=== PATIENT | female | born 1980 ===

== ENCOUNTER 2017-04-23 11:46 | Observation (INO) | payer OTHER ==
[2017-04-23 11:47] VITALS: BMI 30.9
[2017-04-23 13:07] VITALS: O2SAT 97
[2017-04-23] MEDS ORDERED: MethylPREDNISolone 40 mg Vial IVP STA (13:14)
--- NOTE | 2017-04-23 13:15 | C.PDOC ---
History Of Present Illness 37-year-old female, PMHx includes Asthma and Migraines, presents to the emergency department with complaints of shortness of breath, headache and diffuse body aches for the past three days. Patient states she has an asthma pump at home but "I try not to use it often." States she hasn't used it since onset of symptoms because she could not find it. Denies nausea/vomiting, fevers , chills, chest pain or any other associated symptoms. Of note, patient has a Hx of multiple visits to ED for multiple somatic complaints. Time Seen by Provider: 04/23/17 12:39 Chief Complaint (Nursing): Shortness Of Breath Past Medical History Reviewed: Historical Data, Nursing Documentation, Vital Signs Vital Signs: Last Vital Signs Temp 97.7 F 04/23/17 14:27 Pulse 90 04/23/17 14:27 Resp 20 04/23/17 14:27 BP 104/66 04/23/17 14:27 Pulse Ox 97 04/23/17 15:17 - Medical History PMH: Asthma, Migraine Family History: States: No Known Family Hx - Social History Hx Tobacco Use: Yes (quit smoking and started again 2 months ago) Hx Alcohol Use: Yes Hx Substance Use: No - Immunization History Hx Tetanus Toxoid Vaccination: No Hx Influenza Vaccination: No Hx Pneumococcal Vaccination: No Review Of Systems Except As Marked, All Systems Reviewed And Found Negative. Constitutional: Negative for: Fever Cardiovascular: Negative for: Chest Pain Respiratory: Positive for: Shortness of Breath, Wheezing Gastrointestinal: Positive for: Abdominal Pain (due to fibroids, chronic). Negative for: Nausea, Vomiting Neurological: Negative for: Weakness, Numbness Physical Exam - Physical Exam Appears: Non-toxic, No Acute Distress, Other (NARD. SPEAKING IN FULL SENTENCES) Skin: Warm, Dry, No Rash Head: Atraumatic, Normacephalic Eye(s): bilateral: Normal Inspection, PERRL, EOMI Nose: Normal Oral Mucosa: Moist Lips: Normal Appearing Neck: Normal ROM Cardiovascular: Rhythm Regular, No Murmur Respiratory: Decreased Breath Sounds (B/L), Wheezing (B/L expiratory.), Other ( MILD TACHYPNEA) Extremity: Normal ROM Neurological/Psych: Oriented x3 ED Course And Treatment - Laboratory Results Result Diagrams: 04/23/17 13:41 06/03/17 13:41 O2 Sat by Pulse Oximetry: 97 Progress - Data Reviewed Data Reviewed: Lab, Diagnostic imaging, EKG, Old records ED OBSERVATION Discharge: Yes Date of observation admission: 04/23/17 Time of observation admission: 12:15 - Observation admission statement Patient is being placed in observation because:: ASTHMA, CP, - Goals of Observation Goals of observation are:: SX IMPROVE - Progress Note Progress Note: 04/23/17 15:16 FEELS BETTER, CO "JITTERY" S/P NEB X 3. NOW W "TICKLE IN BACK OF THROAT" CAUSING COUGH. CTA B/L NO W/R/R IMPROVED COMPARED TO PRIOR. 04/23/17 16:23 FEELS BETTER. NARD. Disposition Counseled Patient/Family Regarding: Studies Performed, Diagnosis, Need For Followup, Rx Given - Disposition Disposition: HOME/ ROUTINE Disposition Time: 16:23 Condition: IMPROVED - Clinical Impression Clinical Impression: Chest wall pain, Asthma exacerbation - Scribe Statement The provider has reviewed the documentation as recorded by the Olive Brennan All medical record entries made by the Olive were at my direction and personally dictated by me. I have reviewed the chart and agree that the record accurately reflects my personal performance of the history, physical exam, medical decision making, and the department course for this patient. I have also personally directed, reviewed, and agree with the discharge instructions and disposition.
[2017-04-23] MEDS ORDERED: Albuterol-Ipratrop 3 mg / 0.5 (3 ml) UD ONE ×3 (13:24→13:54)
[2017-04-23] MEDS ORDERED: MethylPREDNISolone 40 mg Vial ONE (13:24)
[2017-04-23] MEDS: Albuterol-Ipratrop 3 mg / 0.5 (3 ml) UD IH SCH ×2 (13:30→13:51)
[2017-04-23 13:46] LABS: BASO % 0.6 % (0.0-2.0); EOS # 0.1 K/uL (0.0-0.7); EOS % 1.6 % (0.0-4.0); HEMATOCRIT 35.8 % (34.0-47.0); LYMPH # 1.1 K/uL (1.0-4.3); LYMPH % 25.5 % (20.0-40.0); MEAN CELL VOLUME 80.1 fL (81.0-99.0); MEAN CORPUSCULAR HEMOGLOBIN 25.1 pg (27.0-31.0); MEAN CORPUSCULAR HGB CONC 31.4 g/dL (33.0-37.0); MEAN PLATELET VOLUME 10.4 fL (7.2-11.7); MONO # 0.6 K/uL (0.0-0.8); MONO % 14.1 % (0.0-10.0)
[2017-04-23 13:52] LABS: WHITE BLOOD COUNT 4.2 K/uL (4.8-10.8)
[2017-04-23 13:56] LABS: CHLORIDE 101 mmol/L (98-107); SODIUM 136 mmol/L (132-148)
[2017-04-23 13:59] LABS: BLOOD UREA NITROGEN 15 mg/dL (7-17); CARBON DIOXIDE 26 mmol/L (22-30); GFR AFRICAN-AMERICAN > 60; GLUCOSE,RANDOM 82 mg/dL (65-105); POTASSIUM 4.5 mmol/L (3.6-5.2)
[2017-04-23 14:00] LABS: CALCIUM 8.4 mg/dl (8.6-10.4)
[2017-04-23 14:29] VITALS: RESP 20
--- NOTE | 2017-04-23 16:24 | RAD ---
HISTORY: SOB COMPARISON: Comparison chest 07/12/2016 TECHNIQUE: PA and lateral views of the chest performed FINDINGS: LUNGS: No active pulmonary disease. PLEURA: No significant pleural effusion identified. No pneumothorax apparent. CARDIOVASCULAR: Normal. OSSEOUS STRUCTURES: Mild multilevel degenerative spondylosis of the thoracic spine VISUALIZED UPPER ABDOMEN: Normal. OTHER FINDINGS: None. IMPRESSION: No active disease.
[2017-04-23 16:46] VITALS: BP 117/83; PULSE 97; TEMP 98.8
--- NOTE | 2017-04-29 16:51 | CARD ---
APPROVED REPORT EKG Measurement Heart [id number] <Conclusion> Normal sinus rhythm with sinus arrhythmia Normal ECG
== END 2017-04-23 16:24 | disposition home or self-care (01) ==
LOC: C.ER 11:46 → C.9OBSV 12:15
PROVIDERS: ADMIT Emergency Medicine; ATTEND Emergency Medicine
DX: J45.901 Unspecified asthma with (acute) exacerbation (principal); Z87.891 Personal history of nicotine dependence
CPT/HCPCS: 71020; 80048; 84484; 85025; 96374; 96375; 99285; G0378; J1885; J2920

== ENCOUNTER 2017-05-26 12:52 | Emergency (ER) | payer OTHER ==
[2017-05-26 12:53] VITALS: BMI 30.9
[2017-05-26 12:59] VITALS: TEMP 97.9
[2017-05-26] MEDS ORDERED: Naproxen 550 mg Tab PO STA (14:06)
--- NOTE | 2017-05-26 14:21 | C.PDOC ---
History Of Present Illness 37 y/o female presents to the ED with complaints of neck and diffuse back pain. Pt reports she tripped and fell at home 1 week ago and today landing on her back. Pt also reports right shoulder pain and mild headache. Denies hitting head , LOC, vomiting, urinary or bowel incontinence, numbness or weakness to extremities or any other complaints. Time Seen by Provider: 05/26/17 13:14 Chief Complaint (Nursing): Upper Extremity Problem/Injury History Per: Patient History/Exam Limitations: no limitations Onset/Duration Of Symptoms: Hrs Current Symptoms Are (Timing): Still Present Quality: "Pain" Severity: Moderate Recent travel outside of the [place]: No Past Medical History Reviewed: Historical Data, Nursing Documentation, Vital Signs Vital Signs: Last Vital Signs Temp 97.9 F 05/26/17 12:55 Pulse 67 05/26/17 12:55 Resp 20 05/26/17 12:55 BP 115/76 05/26/17 12:55 Pulse Ox 100 05/26/17 14:24 - Medical History PMH: Asthma, Migraine Family History: States: Unknown Family Hx - Social History Hx Tobacco Use: Yes (quit smoking and started again 2 months ago) Hx Alcohol Use: Yes Hx Substance Use: No - Immunization History Hx Tetanus Toxoid Vaccination: No Hx Influenza Vaccination: No Hx Pneumococcal Vaccination: No Review Of Systems Except As Marked, All Systems Reviewed And Found Negative. Cardiovascular: Negative for: Chest Pain Respiratory: Negative for: Shortness of Breath Gastrointestinal: Negative for: Vomiting Genitourinary: Negative for: Incontinence Musculoskeletal: Positive for: Neck Pain, Back Pain (chronic back pain) Neurological: Positive for: Headache. Negative for: Weakness, Numbness Physical Exam - Physical Exam Appears: Non-toxic, In Acute Distress (mild pain) Skin: Warm, Dry, No Rash Head: Atraumatic, Normacephalic Neck: Normal ROM, No Midline Cervical Tenderness, Supple Chest: Symmetrical, No Tenderness, No Ecchymosis Cardiovascular: Rhythm Regular, No Murmur Respiratory: Normal Breath Sounds, No Rales, No Rhonchi, No Wheezing Gastrointestinal/Abdominal: Normal Exam, Soft, No Tenderness Back: Vertebral Tenderness (lumbar), Paraspinal Tenderness (diffuse) Extremity: Normal ROM, Tenderness (mild right shoulder tenderness), Capillary Refill (<2 seconds), No Deformity, No Swelling Neurological/Psych: Oriented x3, Normal Speech, Normal Cognition, Normal Motor, Normal Sensation Gait: Steady ED Course And Treatment O2 Sat by Pulse Oximetry: 100 (room air) Pulse Ox Interpretation: Normal Progress Note: Plan: Naproxen, flexeril, XR lumbar and cervical spine, XR thoracic spine Medical Decision Making Medical Decision Makin37 y/o female presents to the ED after a slip and call and now c/o with complaints of neck and diffuse back pain. Uhcg (-). XR c spine : straightening of normal cervical lordosis, (+) mild spondylosis of C5-C6, (-) fracture, as read by PA. XR T spine : (+) mild spondylosis of the entire T spine, (-) fracture, as read by PA. XR L spine : (-) fracture, as read by PA. XR results d/w the pt in great detail. Pt given Rx for naprosyn and flexeril, was advised to f/u with referral physician in 1-2 days without fail for re- evaluation, instructed to return to the ER at any time for any new or worsening symptoms. Pt verbalize understanding of instructions, given the opportunity to ask any questions. Disposition Counseled Patient/Family Regarding: Diagnosis, Need For Followup, Rx Given - Disposition Referrals: Roberto Faustin Jr., MD [Medical Doctor] - Disposition: HOME/ ROUTINE Disposition Time: 16:00 Condition: STABLE Prescriptions: Cyclobenzaprine [Cyclobenzaprine HCl] 10 mg PO TID #15 tab Naproxen 500 mg PO BID #30 tab Forms: Work Excuse Print Language: GREEK - Clinical Impression Clinical Impression: Back contusion - PA / HEALTH CARE MARKETING SPECIALIST / Resident Statement MD/ has reviewed & agrees with the documentation as recorded. - Scribe Statement The provider has reviewed the documentation as recorded by the Olive Maxwell All medical record entries made by the Olive were at my direction and personally dictated by me. I have reviewed the chart and agree that the record accurately reflects my personal performance of the history, physical exam, medical decision making, and the department course for this patient. I have also personally directed, reviewed, and agree with the discharge instructions and disposition.
[2017-05-26] MEDS ORDERED: Naproxen 550 mg Tab PO ONE (14:26)
--- NOTE | 2017-05-26 16:17 | RAD ---
HISTORY: pain COMPARISON: No prior. FINDINGS: BONES: Alignment maintained. No fracture. Mild diffuse thoracic spondylosis. No suspect compression fracture DISC SPACES: Normal. SOFT TISSUES: Normal. OTHER FINDINGS: None. IMPRESSION: Diffuse thoracic mild thoracic spondylosis
--- NOTE | 2017-05-26 16:19 | RAD ---
PROCEDURE: Cervical Spine Radiographs. HISTORY: Pain. COMPARISON: None. FINDINGS: BONES: Straightening of the normal cervical lordosis. . No fracture. Dens Intact. Minimal anterior wedging anterior spondylosis and mild anterior intervertebral disc calcification and/or anterior longitudinal ligamentous calcification - all finding suggested C5-6 and C6-7 DISC SPACES: Normal. SOFT TISSUES: Normal. No prevertebral soft tissue swelling. OTHER FINDINGS: None. IMPRESSION: Straightening of the normal cervical lordosis. C5 and C6 mild spondylosis with additional findings regional to this level as well
--- NOTE | 2017-05-26 16:26 | RAD ---
PROCEDURE: Radiographs of the Lumbar Spine. HISTORY: pain COMPARISON: No prior. FINDINGS: BONES: Normal alignment. No listhesis. No fracture. Transitional elements are suggested thoraco lumbar and lumbosacral level. Purposes of this report, T12 will be considered with rudimentary left rib. L5 is sacralized. Anterior superior L3 endplate ridging and lesser ridging at L2 is suggested. No compression fractures DISC SPACES: Unremarkable. OTHER FINDINGS: None. IMPRESSION: Transitional elements-developmental variants. No compression fracture. Mild lumbar spondylosis as above
[2017-05-26 16:43] VITALS: BP 129/85; PULSE 85; RESP 16; O2SAT 98
== END 2017-05-26 16:42 | disposition home or self-care (01) ==
LOC: C.ER 12:52
DX: S30.0XXA Contusion of lower back and pelvis, initial encounter (principal); W01.0XXA Fall on same level from slipping, tripping and stumbling without subsequent striking against object, initial encounter; Y92.009 Unspecified place in unspecified non-institutional (private) residence as the place of occurrence of the external cause

== ENCOUNTER 2017-06-28 22:39 | Emergency (ER) | payer OTHER ==
[2017-06-28 22:39] VITALS: BMI 30.9
[2017-06-28 23:22] VITALS: BP 137/77; PULSE 94; RESP 16; TEMP 98.4; O2SAT 99
[2017-06-28] MEDS ORDERED: Naproxen 550 mg Tab PO STA (23:56)
--- NOTE | 2017-06-28 23:59 | C.PDOC ---
History Of Present Illness 37 year old female who presents to the ER with a complaint of a painful mass behind her left ear for the past week that has been causing a headache. Patient reports she has a Hx of chronic back/neck pain due to her arthritis. She denies fever, chills, nausea, vomiting, URI, rash, or sore throat. Chief Complaint (Nursing): Abnormal Skin Integrity History Per: Patient History/Exam Limitations: no limitations Onset/Duration Of Symptoms: Days Current Symptoms Are (Timing): Still Present Quality: "Pain" Associated Symptoms: denies: Photophobia, Blurred Vision, Nausea, Vomiting, Extremity Weakness Recent travel outside of the [place]: No Past Medical History Reviewed: Historical Data, Nursing Documentation, Vital Signs Vital Signs: Last Vital Signs Temp 98.4 F 06/28/17 23:16 Pulse 94 H 06/28/17 23:16 Resp 16 06/28/17 23:16 BP 137/77 06/28/17 23:16 Pulse Ox 99 06/29/17 01:47 - Medical History PMH: Arthritis, Asthma, Migraine Surgical History: No Surg Hx Family History: States: Unknown Family Hx - Social History Hx Tobacco Use: Yes (quit smoking and started again 2 months ago) Hx Alcohol Use: Yes Hx Substance Use: No - Immunization History Hx Tetanus Toxoid Vaccination: No Hx Influenza Vaccination: No Hx Pneumococcal Vaccination: No Review Of Systems Constitutional: Negative for: Fever, Chills ENT: Negative for: Throat Pain, Throat Swelling Respiratory: Negative for: Cough, Wheezing Gastrointestinal: Negative for: Nausea, Vomiting Skin: Positive for: Other (Mass behind left ear) Physical Exam - Physical Exam Appears: Well, Non-toxic, No Acute Distress Skin: Normal Color, Warm, Dry Head: Atraumatic, Normacephalic Eye(s): bilateral: Normal Inspection, PERRL, EOMI Ear(s): Bilateral: Normal Nose: Normal Oral Mucosa: Moist Throat: Normal, No Erythema, No Exudate Neck: Normal, Normal ROM, No Midline Cervical Tenderness, Supple Lymphatic: Adenopathy (Tender, mobile behind left ear) Chest: Symmetrical, No Tenderness Cardiovascular: Rhythm Regular, No Murmur Respiratory: Normal Breath Sounds, No Rales, No Rhonchi, No Wheezing Back: Normal Inspection, No Vertebral Tenderness Extremity: Normal ROM, No Tenderness, No Swelling Pulses: Left Radial: Normal, Right Radial: Normal Neurological/Psych: Oriented x3, Normal Speech, Normal Cognition, Normal Cranial Nerves, Normal Motor, Normal Sensation ED Course And Treatment O2 Sat by Pulse Oximetry: 99 (Room air) Pulse Ox Interpretation: Normal Medical Decision Making Medical Decision Makin37 year old female who presents to the ER with a complaint of a painful mass behind her left ear for the past week that has been causing a headache. Plan: * Anaprox Pt notified of likely diagnosis, advised to take medication as prescribed and to monitor her symptoms. Otherwise, advised to f/u with referral provided in 2 days for re-evaluation. Return to the ER at any time for any new or worsening symptoms. Disposition Counseled Patient/Family Regarding: Diagnosis, Need For Followup, Rx Given - Disposition Referrals: Libia Turcios MD [Staff Provider] - [facility] [Outside] Disposition: HOME/ ROUTINE Disposition Time: 23:57 Condition: STABLE Additional Instructions: Follow up with your pmd in 2 days for re-evaluation. Take medication as prescribed. Return to the ER at any time for any new or worsening symptoms. Prescriptions: Naproxen 500 mg PO BID #30 tab Instructions: Lymphadenopathy (ED) Forms: [employer] (Polish), Work Excuse Print Language: GERMAN - Clinical Impression Clinical Impression: Lymphadenopathy - PA / WINDOWS SOFTWARE ENGINEER / Resident Statement MD/DO has reviewed & agrees with the documentation as recorded. - Scribe Statement The provider has reviewed the documentation as recorded by the Scribe Kaushik Strauss All medical record entries made by the Scribe were at my direction and personally dictated by me. I have reviewed the chart and agree that the record accurately reflects my personal performance of the history, physical exam, medical decision making, and the department course for this patient. I have also personally directed, reviewed, and agree with the discharge instructions and disposition.
[2017-06-29] MEDS ORDERED: Naproxen 550 mg Tab PO ONE
== END 2017-06-29 00:05 | disposition home or self-care (01) ==
LOC: C.ER 22:39
DX: R59.1 Generalized enlarged lymph nodes (principal)

== ENCOUNTER 2017-07-26 23:07 | Emergency (ER) | payer OTHER ==
[2017-07-26 23:07] VITALS: BMI 30.9
[2017-07-27] MEDS ORDERED: Oxycodone/Acetaminophen 5/325 mg Tab PO STA (00:08)
[2017-07-27] MEDS ORDERED: Amoxicillin-Clav 875-125 mg Tab PO STA (00:08)
[2017-07-27] MEDS ORDERED: Amoxicillin-Clav 875-125 mg Tab PO ONE (00:25)
[2017-07-27] MEDS ORDERED: Oxycodone/Acetaminophen 5/325 mg Tab ONE (00:25)
--- NOTE | 2017-07-27 00:45 | C.PDOC ---
History Of Present Illness 37 y/o female c/o left ear pain and decreased hearing that has worsened today. 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 Denies drainage from the left ear, URI symptoms, fever, chills, or any other complaints. Time Seen by Provider: 07/26/17 23:48 Chief Complaint (Nursing): ENT Problem History Per: Patient History/Exam Limitations: None Onset/Duration Of Symptoms: Hrs Current Symptoms Are (Timing): Still Present Quality (Ear): denies: Discharge Severity: Mild Past Medical History Reviewed: Historical Data, Nursing Documentation, Vital Signs Vital Signs: Last Vital Signs Temp 98 F 07/27/17 01:24 Pulse 90 07/27/17 01:24 Resp 20 07/27/17 01:24 BP 123/66 07/27/17 01:24 Pulse Ox 98 07/27/17 04:39 - Medical History PMH: Arthritis, Asthma, Migraine Family History: States: Unknown Family Hx - Social History Hx Tobacco Use: Yes (quit smoking and started again 2 months ago) Hx Alcohol Use: Yes Hx Substance Use: No - Immunization History Hx Tetanus Toxoid Vaccination: No Hx Influenza Vaccination: No Hx Pneumococcal Vaccination: No Review Of Systems Constitutional: Negative for: Fever, Chills ENT: Positive for: Ear Pain (Left). Negative for: Ear Discharge, Nose Discharge , Nose Congestion, Throat Pain Respiratory: Negative for: Cough Physical Exam - Physical Exam Appears: Non-toxic, No Acute Distress Skin: Warm, Dry Head: Atraumatic, Normacephalic Eye(s): bilateral: Normal Inspection Ear(s): Left: TM Erythema (With bulging), Other (Tragal tenderness.), Right: Normal (Hearing loss during childhood.) Neck: Supple Lymphatic: No Adenopathy Neurological/Psych: Oriented x3 ED Course And Treatment O2 Sat by Pulse Oximetry: 98 (RA) Pulse Ox Interpretation: Normal Progress Note: Plans: Augmentin, Percocet. Patient is in no acute distress at this time. Patient was advised to follow up with PMD / ENT for further evaluation and to return if symptoms worsen. Disposition Counseled Patient/Family Regarding: Diagnosis, Need For Followup, Rx Given - Disposition Referrals: Urbano Cleary MD [Staff Provider] - Disposition: HOME/ ROUTINE Disposition Time: 00:42 Condition: STABLE Additional Instructions: Please follow up with ENT doctor Take all medications prescribed Return to ER if worse Prescriptions: Amoxicillin/Clavulanate [Augmentin 875 MG-125 MG] 1 tab PO BID #14 tab Ibuprofen [Motrin] 600 mg PO Q6H #20 tab oxyCODONE/Acetaminophen [Percocet 5/325 mg Tab] 1 tab PO PRN PRN #7 tab PRN Reason: Pain Instructions: Otitis Media (ED) Forms: [employer] (Botswanan) - Clinical Impression Clinical Impression: Otitis media of left ear - Scribe Statement The provider has reviewed the documentation as recorded by the Scribkimberly valverde All medical record entries made by the Radhaibkimberly were at my direction and personally dictated by me. I have reviewed the chart and agree that the record accurately reflects my personal performance of the history, physical exam, medical decision making, and the department course for this patient. I have also personally directed, reviewed, and agree with the discharge instructions and disposition.
[2017-07-27 01:25] VITALS: BP 123/66; PULSE 90; RESP 20; TEMP 98
[2017-07-27 04:35] VITALS: O2SAT 98
== END 2017-07-27 01:24 | disposition home or self-care (01) ==
LOC: C.ER 23:07
DX: H66.92 Otitis media, unspecified, left ear (principal)

== ENCOUNTER 2017-09-30 22:59 | Emergency (ER) | payer OTHER ==
[2017-09-30 23:00] VITALS: BMI 30.9
[2017-09-30 23:08] VITALS: TEMP 97.6
--- NOTE | 2017-09-30 23:14 | C.PDOC ---
History Of Present Illness 37F c/o left side low abd pain since yesterday became worse this evening. no exac or reliev fx. she has taken nothing for the pain. she was here w left side pain last year- ? ureteral stone at that time. psh tubal ligation. Time Seen by Provider: 09/30/17 23:12 Chief Complaint (Nursing): Abdominal Pain Past Medical History Vital Signs: Last Vital Signs Temp 97.6 F 09/30/17 23:03 Pulse 65 09/30/17 23:03 Resp 18 09/30/17 23:03 BP 138/76 09/30/17 23:03 Pulse Ox 100 10/01/17 00:05 - Medical History PMH: Arthritis, Asthma, Migraine Family History: States: Other Other Family History: nc - Social History Hx Tobacco Use: Yes (quit smoking and started again 2 months ago) Hx Alcohol Use: Yes Hx Substance Use: No - Immunization History Hx Tetanus Toxoid Vaccination: No Hx Influenza Vaccination: No Hx Pneumococcal Vaccination: No Review Of Systems Constitutional: Negative for: Fever Cardiovascular: Negative for: Chest Pain Respiratory: Negative for: Shortness of Breath Gastrointestinal: Positive for: Abdominal Pain. Negative for: Nausea, Vomiting , Diarrhea, Hematochezia Genitourinary: Negative for: Dysuria, Frequency, Vaginal Discharge, Vaginal Bleeding Physical Exam - Physical Exam Appears: Other (in pain) Skin: Warm, Dry Head: Atraumatic Eye(s): bilateral: PERRL Nose: No Epistaxis Cardiovascular: Rhythm Regular Respiratory: No Decreased Breath Sounds, No Accessory Muscle Use Gastrointestinal/Abdominal: Soft, Tenderness, No Distention, No Guarding, No Rebound Back: CVA Tenderness (left) Neurological/Psych: Oriented x3 ED Course And Treatment O2 Sat by Pulse Oximetry: 100 Medical Decision Making Medical Decision Makinpm pt feeling better now. bedside US shows mild left side hydronephrosis consistent w presentation of renal colic Disposition - Disposition Referrals: Deshawn Velasquez Jr., MD [Staff Provider] - Disposition: HOME/ ROUTINE Disposition Time: 00:19 Condition: IMPROVED Additional Instructions: Please follow up with the urologist. Call tuesday for an appointment. Return to the ER for any worsening symptoms, fever, chills, or for any other concerns. Prescriptions: Naproxen 500 mg PO Q12H PRN #10 tablet.dr PRN Reason: Pain, Moderate (4-7) Tamsulosin [Flomax] 0.4 mg PO DAILY #5 cap Instructions: Renal Colic (ED) Forms: [employer] (Ukrainian), General Discharge Instructions - Clinical Impression Clinical Impression: Renal colic
[2017-09-30] MEDS ORDERED: Sodium Chloride 0.9% 1,000 ML IV ONE (23:21)
[2017-09-30] MEDS ORDERED: Sodium Chloride 0.9% 1,000 ML ONE (23:32)
[2017-09-30 23:41] LABS: RBC URINE 76 /hpf (0-3); URINE BACTERIA RARE (<OCC); URINE BILIRUBIN NEGATIVE (NEGATIVE); URINE BLOOD 3+ (NEGATIVE); URINE COLOR Yellow (YELLOW); URINE GLUCOSE (UA) NORMAL (Normal); URINE KETONE NEGATIVE (NEGATIVE); URINE LEUKOCYTE ESTERASE NEG Leu/uL (Negative); URINE PROTEIN NEGATIVE (NEGATIVE); URINE UROBILINOGEN NORMAL mg/dL (0.2-1.0); WBC URINE 3 /hpf (0-5)
[2017-10-01 00:47] VITALS: BP 120/70; PULSE 80; RESP 14; O2SAT 99
== END 2017-10-01 00:47 | disposition home or self-care (01) ==
LOC: SUPCPDRO 22:59 → C.ER 22:59
DX: N23 Unspecified renal colic (principal)
CPT/HCPCS: 81001; 84703; 87086; 96374; 96376; 99284; J1885; J7040

== ENCOUNTER 2017-10-03 10:52 | Observation (INO) | payer OTHER ==
[2017-10-03 10:52] VITALS: BMI 30.9
--- NOTE | 2017-10-03 12:22 | C.PDOC ---
History Of Present Illness 37 year old female presents to the ED c/o left flank pain, radiating to the left groin and associated with vomit. Patient states she was seen in the ED last [place] (3 days ago) and was told she had a kidney stone. She states she had another kidney stone last year. patient sts she was give pain medications and Flomax, but pain is severe and she can't tolerate po that prompted this ER visit. Time Seen by Provider: 10/03/17 11:57 Chief Complaint (Nursing): Back Pain History/Exam Limitations: no limitations Onset/Duration Of Symptoms: Hrs Quality Of Discomfort: "Pain" Severity: Moderate Previous Symptoms: Back Pain Associated Symptoms: Other (Nausea) Recent travel outside of the [place]: No Additional History Per: Patient Past Medical History Reviewed: Historical Data, Nursing Documentation, Vital Signs Vital Signs: Last Vital Signs Temp 98.8 F 10/03/17 18:34 Pulse 86 10/03/17 18:34 Resp 18 10/03/17 18:34 BP 131/82 10/03/17 18:34 Pulse Ox 97 10/03/17 18:34 - Medical History PMH: Arthritis, Asthma, Migraine Surgical History: No Surg Hx Family History: States: Unknown Family Hx - Social History Hx Tobacco Use: Yes (quit smoking and started again 2 months ago) Hx Alcohol Use: Yes Hx Substance Use: No - Immunization History Hx Tetanus Toxoid Vaccination: No Hx Influenza Vaccination: No Hx Pneumococcal Vaccination: No Review Of Systems Constitutional: Negative for: Fever, Chills Cardiovascular: Negative for: Chest Pain Respiratory: Negative for: Cough, Shortness of Breath Gastrointestinal: Positive for: Vomiting. Negative for: Nausea, Abdominal Pain Genitourinary: Negative for: Frequency, Vaginal Discharge, Vaginal Bleeding Musculoskeletal: Positive for: Back Pain Neurological: Negative for: Weakness, Numbness Physical Exam - Physical Exam Appears: In Acute Distress Skin: Normal Color, Warm, Dry Head: Atraumatic, Normacephalic Oral Mucosa: Moist Neck: Normal ROM, Supple Chest: Symmetrical Cardiovascular: Rhythm Regular, No Murmur Respiratory: Normal Breath Sounds, No Accessory Muscle Use, No Rales, No Rhonchi , No Wheezing Gastrointestinal/Abdominal: Soft, No Tenderness Back: CVA Tenderness (Left ) Extremity: Normal ROM, No Pedal Edema, No Deformity, No Swelling Neurological/Psych: Oriented x3, Normal Speech, Normal Cognition ED Course And Treatment - Laboratory Results Result Diagrams: 10/03/17 12:36 10/03/17 12:36 O2 Sat by Pulse Oximetry: 98 (On RA) Pulse Ox Interpretation: Normal - CT Scan/US CT abdomen/pelvis Other Rad Studies (CT/US): Interpreted By Me, Read By Radiologist, Radiology Report Reviewed CT/US Interpretation: PROCEDURE: CT Abdomen and Pelvis without Oral or IV contrast. HISTORY: left flank pain. COMPARISON: CT abdomen and pelvis with contrast performed 03/23/16. TECHNIQUE: Contiguous axial images of the abdomen and pelvis. No oral or IV contrast administered. Coronal and Sagittal reformats generated and reviewed. Radiation dose: Total exam DLP = 519.98 mGy-cm. This CT exam was performed using one or more of the following dose reduction techniques: Automated exposure control, adjustment of the mA and/or kV according to patient size, and/or use of iterative reconstruction technique. FINDINGS: There is limited evaluation of the solid organs without the administration of IV contrast. LOWER THORAX: No visible consolidation, pleural effusion, or pneumothorax. LIVER: Unremarkable unenhanced appearance. GALLBLADDER AND BILE DUCTS: Unremarkable unenhanced appearance. PANCREAS: Unremarkable unenhanced appearance. SPLEEN: Unremarkable unenhanced appearance. ADRENALS: Unremarkable unenhanced appearance. KIDNEYS AND URETERS : 4 mm obstructing calculus within the proximal left ureter (series 3, image 84 ). Additional nonobstructing tiny less than 2 mm calculi (at least 2) noted in the left kidney. Mild left-sided hydroureteronephrosis. No right-sided hydronephrosis or obstructing calculus. BLADDER: Under distended urinary bladder appears otherwise unremarkable. REPRODUCTIVE: Uterus is present. APPENDIX: The appendix appears within normal limits of caliber. No secondary signs of acute appendicitis. BOWEL: The stomach is nondistended. Lack of oral contrast limits evaluation for bowel pathology. The bowel loops appear within normal limits of caliber without evidence of intestinal obstruction. PERITONEUM: No significant free fluid. No definite free air. LYMPH NODES: No bulky lymphadenopathy identified. VASCULATURE: No aortic aneurysm. BONES: No acute osseous abnormality is detected. OTHER FINDINGS: None. IMPRESSION: 4 mm obstructing calculus within the proximal left ureter. Additional nonobstructing tiny less than 2 mm calculi (at least 2) noted in the left kidney. Mild left-sided hydroureteronephrosis. Progress Note: Plan: -Blood work, UA ordered. -Lactated 100 mld/Hr IV, Toradol 130 mg IVP, Zofran 4 mg IVP given. -CT abdo/pelvis ordered. Case was d /w who instructed to admit patient medicine. He will take her to OR for stenting tomorrow morning. patient was accepting to medicine by . Disposition - Disposition Disposition: HOSPITALIZED Disposition Time: 15:36 Condition: FAIR - Clinical Impression Clinical Impression: Ureteral calculus, Renal colic on left side - PA / COMPOUNDER / Resident Statement MD/DO has reviewed & agrees with the documentation as recorded. - Scribe Statement The provider has reviewed the documentation as recorded by the Scribe Mohsen Brewer All medical record entries made by the Scribe were at my direction and personally dictated by me. I have reviewed the chart and agree that the record accurately reflects my personal performance of the history, physical exam, medical decision making, and the department course for this patient. I have also personally directed, reviewed, and agree with the discharge instructions and disposition. Decision To Admit - Pt Status Changed To: Hospital Disposition Of: Observation - . Bed Request Type: Regular Admitting Physician: Sofy Man Patient Diagnosis: Ureteral calculus, Renal colic on left side
[2017-10-03] MEDS ORDERED: Lactated Ringer's 1,000 ML IV STA (12:25)
[2017-10-03 12:40] LABS: BASO % 0.3 % (0.0-2.0); EOS # 0.1 K/uL (0.0-0.7); HEMATOCRIT 34.8 % (34.0-47.0); LYMPH # 1.8 K/uL (1.0-4.3); MEAN CELL VOLUME 80.6 fL (81.0-99.0); MEAN CORPUSCULAR HEMOGLOBIN 25.5 pg (27.0-31.0); MEAN CORPUSCULAR HGB CONC 31.7 g/dL (33.0-37.0); MEAN PLATELET VOLUME 10.8 fL (7.2-11.7); MONO # 0.6 K/uL (0.0-0.8); MONO % 7.9 % (0.0-10.0); RED CELL DISTRIBUTION WIDTH 14.8 % (11.5-14.5); WHITE BLOOD COUNT 7.3 K/uL (4.8-10.8)
[2017-10-03] MEDS ORDERED: Lactated Ringer's 1,000 ML ONE (12:59)
[2017-10-03 13:02] LABS: CHLORIDE 103 mmol/L (98-107); SODIUM 135 mmol/L (132-148)
[2017-10-03 13:03] LABS: POTASSIUM 3.5 mmol/L (3.6-5.2)
[2017-10-03 13:04] LABS: GFR AFRICAN-AMERICAN > 60
[2017-10-03 13:05] LABS: ALB/GLOB RATIO 1.2 (1.0-2.1); ALKALINE PHOSPHATASE 59 U/L (38-126); ALT/SGPT 30 U/L (9-52); AST/SGOT 17 U/L (14-36); BILIRUBIN,TOTAL 0.5 mg/dL (0.2-1.3); BLOOD UREA NITROGEN 16 mg/dL (7-17); CARBON DIOXIDE 26 mmol/L (22-30); TOTAL PROTEIN 7.3 g/dL (6.3-8.3)
[2017-10-03 13:06] LABS: CALCIUM 9.1 mg/dl (8.6-10.4); GLUCOSE,RANDOM 77 mg/dL (65-105)
[2017-10-03 13:09] LABS: RBC URINE 21 /hpf (0-3); URINE BILIRUBIN NEGATIVE (NEGATIVE); URINE BLOOD 1+ (NEGATIVE); URINE COLOR Yellow (YELLOW); URINE GLUCOSE (UA) NORMAL (Normal); URINE KETONE NEGATIVE (NEGATIVE); URINE LEUKOCYTE ESTERASE TRACE Leu/uL (Negative); URINE PROTEIN NEGATIVE (NEGATIVE); URINE UROBILINOGEN NORMAL mg/dL (0.2-1.0); WBC URINE 9 /hpf (0-5)
--- NOTE | 2017-10-03 13:44 | CT ---
PROCEDURE: CT Abdomen and Pelvis without Oral or IV contrast. HISTORY: left flank pain COMPARISON: CT abdomen and pelvis with contrast performed 03/23/16 TECHNIQUE: Contiguous axial images of the abdomen and pelvis. No oral or IV contrast administered. Coronal and Sagittal reformats generated and reviewed. Radiation dose: Total exam DLP = 519.98 mGy-cm. This CT exam was performed using one or more of the following dose reduction techniques: Automated exposure control, adjustment of the mA and/or kV according to patient size, and/or use of iterative reconstruction technique. FINDINGS: There is limited evaluation of the solid organs without the administration of IV contrast. LOWER THORAX: No visible consolidation, pleural effusion, or pneumothorax. LIVER: Unremarkable unenhanced appearance. GALLBLADDER AND BILE DUCTS: Unremarkable unenhanced appearance. PANCREAS: Unremarkable unenhanced appearance. SPLEEN: Unremarkable unenhanced appearance. ADRENALS: Unremarkable unenhanced appearance. KIDNEYS AND URETERS: 4 mm obstructing calculus within the proximal left ureter (series 3, image 84). Additional nonobstructing tiny less than 2 mm calculi (at least 2) noted in the left kidney. Mild left-sided hydroureteronephrosis. No right-sided hydronephrosis or obstructing calculus. BLADDER: Under distended urinary bladder appears otherwise unremarkable. REPRODUCTIVE: Uterus is present. APPENDIX: The appendix appears within normal limits of caliber. No secondary signs of acute appendicitis. BOWEL: The stomach is nondistended. Lack of oral contrast limits evaluation for bowel pathology. The bowel loops appear within normal limits of caliber without evidence of intestinal obstruction. PERITONEUM: No significant free fluid. No definite free air. LYMPH NODES: No bulky lymphadenopathy identified. VASCULATURE: No aortic aneurysm. BONES: No acute osseous abnormality is detected. OTHER FINDINGS: None. IMPRESSION: 4 mm obstructing calculus within the proximal left ureter. Additional nonobstructing tiny less than 2 mm calculi (at least 2) noted in the left kidney. Mild left-sided hydroureteronephrosis.
--- NOTE | 2017-10-03 16:10 | CP.PCM.PN ---
Subjective - Date & Time of Evaluation Date of Evaluation: 10/03/17 Time of Evaluation: 16:00 - Subjective Subjective: Progress note. Attending: Dr. Man This is a 37 yo female with pmh of asthma and kidney stones presenting with chief complaint of left flank pain x 1 week. She has had this pain before but never this strong. She was told she had kidney stones in the past but they were non obstructing. Patient was recently discharged from ER with flank pain on tramadol, flomax, and naproxen. Patient says the flank pain does not radiate. It came on gradually and built up over the past week. Reports associated vomiting x 10, non bloody non bilious. No fevers or chills. Pain got so bad today she could not move. PMH: kidney stones, asthma PSH: none Allergies: NKDA Home meds: albuterol pump, naproxen, tramadol, flomax FH: DM, breast cancer Social hx: Current smoker. Social drinker. No drug use. Born [place] Works at [employer]. Lives at home with 3 children. Objective - Vital Signs/Intake and Output Vital Signs (last 24 hours): Temp Pulse Resp BP Pulse Ox 99.1 F 54 L 18 133/89 98 10/03/17 13:12 10/03/17 13:12 10/03/17 13:12 10/03/17 13:12 10/03/17 15:37 - Medications Medications: Current Medications Lactated Ringer's (Lactated Ringer's) 1,000 mls @ 100 mls/hr IV .Q10H [facility] Stop: 10/03/17 22:24 Last Admin: 10/03/17 13:09 Dose: 100 mls/hr Sodium Chloride (Sodium Chloride 0.9%) 1,000 mls @ 100 mls/hr IV .Q10H [facility] Ketorolac Tromethamine (Toradol) 30 mg IVP Q6 PRN PRN Reason: Pain, moderate (4-7) Tamsulosin HCl (Flomax) 0.4 mg PO DAILY [facility] - Labs Labs: 10/03/17 12:36 10/03/17 12:36 - Constitutional Appears: Non-toxic, No Acute Distress - Head Exam Head Exam: ATRAUMATIC, NORMAL INSPECTION, NORMOCEPHALIC - Eye Exam Eye Exam: EOMI - ENT Exam ENT Exam: Mucous Membranes Moist - Neck Exam Neck Exam: Full ROM, Normal Inspection - Respiratory Exam Respiratory Exam: NORMAL BREATHING PATTERN. absent: Respiratory Distress - Cardiovascular Exam Cardiovascular Exam: +S1, +S2 - GI/Abdominal Exam GI & Abdominal Exam: Soft, Tenderness. absent: Guarding, Rigid - Extremities Exam Extremities Exam: Full ROM, Normal Inspection - Back Exam Back Exam: CVA tenderness (L), NORMAL INSPECTION. absent: CVA tenderness (R) - Neurological Exam Neurological Exam: Alert, Awake, Oriented x3 - Psychiatric Exam Psychiatric exam: Normal Affect, Normal Mood - Skin Skin Exam: Dry, Intact, Normal Color, Warm Assessment and Plan - Assessment and Plan (Free Text) Assessment: This is a 37 yo female with 1. Left obstructing ureterolithiasis -urology consult. Dr. Velasquez. recs appreciated. -NPO -flomax daily -IV toradol for pain -NS 100 cc/hr -will recheck am labs 2. Hx of asthma -continue to monitor 3. GI/DVT ppx -protonix IV daily -SCDs discussed with Dr. Man
[2017-10-03] MEDS: Sodium Chloride 0.9% 1,000 ML IV SCH (19:26)
[2017-10-04] MEDS: Sodium Chloride 0.9% 1,000 ML IV SCH ×3 (02:41→12:43)
[2017-10-04 07:48] LABS: INR 1.1
[2017-10-04 07:53] LABS: BASO % 0.2 % (0.0-2.0); EOS # 0.1 K/uL (0.0-0.7); EOS % 1.2 % (0.0-4.0); HEMATOCRIT 31.4 % (34.0-47.0); LYMPH # 1.9 K/uL (1.0-4.3); MEAN CELL VOLUME 79.9 fL (81.0-99.0); MEAN CORPUSCULAR HEMOGLOBIN 25.4 pg (27.0-31.0); MEAN CORPUSCULAR HGB CONC 31.7 g/dL (33.0-37.0); MEAN PLATELET VOLUME 10.8 fL (7.2-11.7); MONO # 0.8 K/uL (0.0-0.8); MONO % 9.7 % (0.0-10.0); RED CELL DISTRIBUTION WIDTH 14.8 % (11.5-14.5)
[2017-10-04 08:00] LABS: CHLORIDE 104 mmol/L (98-107); POTASSIUM 3.7 mmol/L (3.6-5.2); SODIUM 135 mmol/L (132-148)
[2017-10-04 08:02] LABS: BILIRUBIN,TOTAL 0.7 mg/dL (0.2-1.3); GFR AFRICAN-AMERICAN > 60
[2017-10-04 08:03] LABS: ALB/GLOB RATIO 1.6 (1.0-2.1); ALKALINE PHOSPHATASE 57 U/L (38-126); ALT/SGPT 27 U/L (9-52); AST/SGOT 19 U/L (14-36); BLOOD UREA NITROGEN 20 mg/dL (7-17); CALCIUM 8.3 mg/dl (8.6-10.4); CARBON DIOXIDE 24 mmol/L (22-30); GLUCOSE,RANDOM 88 mg/dL (65-105); PHOSPHOROUS 3.2 mg/dL (2.5-4.5); TOTAL PROTEIN 5.4 g/dL (6.3-8.3)
[2017-10-04 08:04] LABS: MAGNESIUM 1.9 mg/dL (1.6-2.3)
[2017-10-04] MEDS ORDERED: Gentamicin 160 MG in Sodium Chloride 0.9% 100 ML IVPB ONE (09:04)
[2017-10-04] MEDS ORDERED: Petrolatum Oint Foilpak (5 gm) TOP PRN (09:26)
[2017-10-04] MEDS ORDERED: Iohexol 240 (50 ml) ONE (09:33)
[2017-10-04] MEDS ORDERED: Ciprofloxacin 400mg/200ml D5W 400 MG/200 ML BAG IVPB ONE (09:33)
[2017-10-04] MEDS ORDERED: Lidocaine 2% Jelly (Uro-Jet) ONE (09:33)
[2017-10-04] MEDS ORDERED: Lactated Ringer's 1,000 ML IV ONE (09:43)
[2017-10-04] MEDS ORDERED: Propofol 10 mg/ml Inj (20 ML) ONE (09:47)
[2017-10-04] MEDS ORDERED: Midazolam 2 MG/2 ML VIAL ONE (09:47)
--- NOTE | 2017-10-04 09:47 | CP.PCM.PN ---
Subjective - Date & Time of Evaluation Date of Evaluation: 10/04/17 Time of Evaluation: 09:45 - Subjective Subjective: 37 year old female with left proximal ureter stone present for several days. pt has sig pain nausea and vomiting does not wish to continue with Medical expulsion therapy, will procede with cysto and possible ureteoscopy today. Ron Objective - Vital Signs/Intake and Output Vital Signs (last 24 hours): Temp Pulse Resp BP Pulse Ox 98.2 F 60 20 118/74 99 10/04/17 08:23 10/04/17 08:23 10/04/17 08:23 10/04/17 08:23 10/04/17 08:23 Intake and Output: 10/04/17 10/04/17 06:59 18:59 Intake Total 1200 Output Total 1 Balance 1199 - Medications Medications: Current Medications Emollient Ointment (Vaseline Oint) 5 gm TOP Q4H PRN PRN Reason: Dry skin Sodium Chloride (Sodium Chloride 0.9%) 1,000 mls @ 100 mls/hr IV .Q10H [facility] Last Admin: 10/04/17 05:40 Dose: 100 mls/hr Gentamicin Sulfate 160 mg/ (Sodium Chloride) 104 mls @ 104 mls/hr IVPB ONCE ONE Stop: 10/04/17 10:03 Ketorolac Tromethamine (Toradol) 30 mg IVP Q6 PRN PRN Reason: Pain, moderate (4-7) Last Admin: 10/04/17 08:30 Dose: 30 mg Pantoprazole Sodium (Protonix Inj) 40 mg IVP DAILY [facility] Pneumococcal Polyvalent Vaccine (Pneumovax 23 Vaccine) 0.5 ml IM .ONCE ONE Stop: 10/05/17 10:01 Tamsulosin HCl (Flomax) 0.4 mg PO DAILY [facility] - Labs Labs: 10/04/17 07:30 10/04/17 07:30 PT 12.3 SECONDS (9.7-12.2) H 10/04/17 07:30 INR 1.1 10/04/17 07:30 APTT 26 SECONDS (21-34) 10/04/17 07:30
[2017-10-04] MEDS ORDERED: Lidocaine Hydrochloride 5 ML INJ ONE (09:50)
--- NOTE | 2017-10-04 10:16 | PCM.SURG1 ---
Surgeon's Initial Post Op Note - Surgeon's Notes Surgeon: Ron Supervisor Intermediates: COLETTE Type of Anesthesia: General LMA Anesthesia Administered By: Staff Pre-Operative Diagnosis: LEFT Proximal ureteral calculi/colic Operative Findings: left p marilyn ureteral calculi Post-Operative Diagnosis: left proximal ureteral calculi Operation Performed: Cysto insertion of stent/Left ureteroscopy Specimen/Specimens Removed: none Estimated Blood Loss: EBL {In ML}: 0 Blood Products Given: N/A Drains Used: No Drains Post-Op Condition: Good Date of Surgery/Procedure: 10/04/17 Time of Surgery/Procedure: 10:15
[2017-10-04] MEDS ORDERED: HYDROmorphone 0.5 mg/0.5 ml ISec IVP PRN (10:24)
[2017-10-04] MEDS ORDERED: Lactated Ringer's 1,000 ML IV SCH (10:30)
[2017-10-04] MEDS ORDERED: Albuterol-Ipratrop 3 mg / 0.5 (3 ml) UD INH PRN (11:27)
--- NOTE | 2017-10-04 11:31 | CP.PCM.PN ---
Subjective - Date & Time of Evaluation Date of Evaluation: 10/04/17 Time of Evaluation: 09:00 - Subjective Subjective: Medicine Progress Note- Dr Man's service Patient seen and examined. Patient states that her pain is better controlled with medication but that she is still in discomfort. Patient describes the left sided back pain as the worst pain she has ever experienced. Patient is afraid to eat because of nausea and vomiting from the pain. Denies vomiting today. Patient is NPO for stent placement with Dr Velasquez. Denies chest pain, shortness of breath, dizziness, diarrhea, and hematuria. Objective - Vital Signs/Intake and Output Vital Signs (last 24 hours): Temp Pulse Resp BP Pulse Ox 97.5 F L 60 10 L 134/68 100 10/04/17 10:21 10/04/17 11:15 10/04/17 11:15 10/04/17 11:15 10/04/17 11:15 Intake and Output: 10/04/17 10/04/17 06:59 18:59 Intake Total 1200 Output Total 1 Balance 1199 - Medications Medications: Current Medications Emollient Ointment (Vaseline Oint) 5 gm TOP Q4H PRN PRN Reason: Dry skin Hydromorphone HCl (Dilaudid) 0.5 mg IVP Q5M PRN PRN Reason: Pain, severe (8-10) Stop: 10/04/17 12:25 Last Admin: 10/04/17 10:45 Dose: 0.5 mg Sodium Chloride (Sodium Chloride 0.9%) 1,000 mls @ 100 mls/hr IV .Q10H [facility] Last Admin: 10/04/17 05:40 Dose: 100 mls/hr Lactated Ringer's (Lactated Ringer's) 1,000 mls @ 75 mls/hr IV .[id number] [facility] Ketorolac Tromethamine (Toradol) 30 mg IVP Q6 PRN PRN Reason: Pain, moderate (4-7) Last Admin: 10/04/17 08:30 Dose: 30 mg Ketorolac Tromethamine (Toradol) 30 mg IVP ONCE PRN PRN Reason: Pain, moderate (4-7) Stop: 10/04/17 12:24 Pantoprazole Sodium (Protonix Inj) 40 mg IVP DAILY [facility] Last Admin: 10/04/17 10:24 Dose: Not Given Pneumococcal Polyvalent Vaccine (Pneumovax 23 Vaccine) 0.5 ml IM .ONCE ONE Stop: 10/05/17 10:01 Tamsulosin HCl (Flomax) 0.4 mg PO DAILY [facility] Last Admin: 10/04/17 10:23 Dose: Not Given - Labs Labs: 10/04/17 07:30 10/04/17 07:30 PT 12.3 SECONDS (9.7-12.2) H 10/04/17 07:30 INR 1.1 10/04/17 07:30 APTT 26 SECONDS (21-34) 10/04/17 07:30 - Additional Findings Additional findings: - Constitutional Appears: Non-toxic, No Acute Distress - Head Exam Head Exam: ATRAUMATIC, NORMAL INSPECTION, NORMOCEPHALIC - Eye Exam Eye Exam: EOMI - ENT Exam ENT Exam: Mucous Membranes Moist - Neck Exam Neck Exam: Full ROM, Normal Inspection - Respiratory Exam Respiratory Exam: NORMAL BREATHING PATTERN. absent: Respiratory Distress - Cardiovascular Exam Cardiovascular Exam: +S1, +S2 - GI/Abdominal Exam GI & Abdominal Exam: Soft, Tenderness. absent: Guarding, Rigid - Extremities Exam Extremities Exam: Full ROM, Normal Inspection - Back Exam Back Exam: CVA tenderness (L), NORMAL INSPECTION. absent: CVA tenderness (R) - Neurological Exam Neurological Exam: Alert, Awake, Oriented x3 - Psychiatric Exam Psychiatric exam: Normal Affect, Normal Mood - Skin Skin Exam: Dry, Intact, Normal Color, Warm Assessment and Plan - Assessment and Plan (Free Text) Assessment: Left obstructing ureterolithiasis -CT abdomen/pelvis: left ureter stone 4mm, 2mm non-obstructing stone in kidney , mild left hydroureternephrosis -urology consult. Dr. Velasquez. recs appreciated. -NPO for stent placement 10/04 -flomax daily -IV toradol for pain -NS 100 cc/hr Hx of asthma -Well controlled -Duonebs 3ml INH q6h prn SOB -continue to monitor GI/DVT ppx -protonix 40mg IV daily -SCDs discussed with Dr. Man
[2017-10-04 17:02] VITALS: BP 126/77; PULSE 61; RESP 20; TEMP 98.4; O2SAT 97
--- NOTE | 2017-10-04 17:53 | CON ---
DATE: 10/03/2017 CHIEF COMPLAINT: Left renal colic. HISTORY OF PRESENT ILLNESS: The patient was admitted through the emergency room where she was diagnosed with a left mid ureteral calculi, which apparently has been present for several days and is causing significant colic not controlled by oral medications. The patient was admitted to the hospital for additional medical expulsive therapy; however, she is still nauseous and still has pain. She denies any history of prior instrumentation or prior ureteral calculi. The patient was told that she had a 2-mm calculi in the left renal pelvis in the past. REVIEW OF SYSTEMS: RESPIRATORY: The patient has no shortness of breath or wheezing. No history of asthma or COPD. CARDIAC: The patient has no history of chest pain or palpitations. No history of cardiac disease. GASTROINTESTINAL: The patient has been nauseous and vomiting for the last several days. She has no history of prior abdominal complaints. : The patient has been diagnosed with left ureteral calculi. No other abnormalities noted. RECORDS TECHNICIAN: The patient denies and has negative test. ORTHO: Noncontributory. NEUROLOGICAL: Noncontributory. SOCIAL AND FAMILY HISTORY: Noncontributory. PHYSICAL EXAMINATION: VITAL SIGNS: The patient is afebrile. HEAD, EARS, EYES, NOSE, AND THROAT: Within normal limits. NECK: Supple. There are no bruits, nodes, or masses. CHEST: Clear bilaterally. There are no rales or rhonchi. HEART: Normal sinus rhythm. ABDOMEN: Soft and nontender. There is no CVA tenderness. There are slightly decreased bowel sounds. There is no abdominal tenderness. VAGINAL: Refused by the patient. EXTREMITIES: Normal. NEUROLOGIC: Normal. SKIN: Normal. IMPRESSION: Left mid ureteral calculi with colic. I suggest, the patient should continue on IV fluids and medical expulsive therapy. If she fails to pass the stone by tomorrow and continues to be uncomfortable we will proceed with lithotripsy. We discussed this with the patient. The risk and complication of this method of management and other methods, the patient understood, and wishes to proceed as soon as possible. Deshawn Velasquez MD
--- NOTE | 2017-10-05 09:52 | OP ---
PROCEDURE DATE: 10/04/2017 PREOPERATIVE DIAGNOSIS: Left upper ureteral calculi/colic. POSTOPERATIVE DIAGNOSIS: Left upper ureteral calculi/colic. PROCEDURE: Cystoscopy, insertion of double - stent and left ureteroscopy. FINDINGS: An obstruction or narrowing in the mid ureter. DESCRIPTION OF PROCEDURE: The patient was asked to sign a detailed informed consent prior to procedure. She is aware that lithotripsy may not be possible because of the high location of the stone and simply a stent maybe placed. She is aware of the risks and complications of ureteroscopy versus medical expulsion therapy. She is willing to accept these risks and wish to proceed with the procedure. She was brought into the room. A time-out was taken according to the rules and regulation of [facility] A prophylactic antibiotics were administered, and the patient was draped and prepped in the usual manner. She was cystoscoped with #21 Storz panendoscopy after reviewing the extra reports and films in the rumen confirming that the patient's pain was on the left side. She was then cystoscoped with #21 Storz cystoscope. The bladder was emptied atraumatically. There was no evidence of urothelial tumors or stones. The left urethral orifice was localized, and the guidewire was passed up into the renal pelvis under fluoroscopic control. The stone was difficult to visualized. The scope was backed out, and the ureteroscope was then passed over a separate guidewire into the left ureteral orifice after . The scope was passed up approximately 10 cm where there was noted to be difficulty in passing the instrument further. Based on the location of the stone, this appears to be right below the stone as noted on CAT scan. It was elected to terminate the procedure and pass a double-J stent. The original guidewire was left in place as well as the second guidewire in the renal pelvis. The ureteroscope was passed out and a double-J stent was inserted over the first guidewire. It was positioned under fluoroscopic control with the proximal end in the renal pelvis and the distal end of the bladder. It was deployed with the stent in the same location. The second guidewire was then removed slowly leaving the stent in appropriate position. The patient tolerated this procedure well. She is urologically cleared for discharge, if she remains afebrile. She should followup in our office within 1 week to arrange either lithotripsy or stent removal. Deshawn Velasquez MD
[2017-10-05] MEDS ORDERED: Pneumococcal 23-Valent Vaccine IM ONE (10:00)
[2017-10-05] MEDS ORDERED: Influenza Vaccine 60 mcg/0.5 mL SYR (4YR UP) IM ONE (10:00)
--- NOTE | 2017-10-05 10:01 | HP ---
HISTORY OF PRESENT ILLNESS: The patient is a 37-year-old female in the hospital with chief complaint of abdominal pain and was found to have kidney stone. The patient came to the hospital for admission. PAST MEDICAL HISTORY: ____ . PHYSICAL EXAMINATION: GENERAL: The patient is awake and alert. VITAL SIGNS: Temperature 98, pulse 97. HEENT: Within normal limits. NECK: Supple. CHEST: Symmetrical. HEART: Regular. ABDOMEN: Soft. EXTREMITIES: No edema. IMPRESSION AND PLAN: The patient with kidney stone. The patient will be IV fluid, pain medications. Sofy Man MD
--- NOTE | 2017-10-05 10:51 | RAD ---
HISTORY: LEFT URETERAL CALCULUS COMPARISON: Abdomen and pelvis CT without contrast 10/03/2017. FINDINGS: BOWEL: Normal. No obstruction. No free air. Moderate fecal loading is seen the ascending colon. BONES: Normal. OTHER FINDINGS: There is a questionable radiodense calculus seen lateral to the left transverse process at the L3 level. Similar calcifications are nonspecific in the inferior right pelvic soft tissues. Urinary bladder appears distended in the pelvis moderately. Clinically correlate. IMPRESSION: Questionable left ureteral calculus L3 level lateral to the transverse process left mikayla abdomen. Additional calculi in the pelvis probably reflects phleboliths as seen in prior CT 10/03/2017. Clinically correlate further. Nonobstructive bowel gas pattern.
--- NOTE | 2017-10-05 10:55 | RAD ---
PROCEDURE: Intraoperative Fluoroscopy. HISTORY: LEFT URETERAL CALCULUS FINDINGS: Fluoroscopic assistance was provided for ureteral stent deployment. seconds of fluoro time was utilized with a total dose of 1.37 mGym2.
== END 2017-10-04 17:31 | disposition home or self-care (01) ==
LOC: C.ER 10:52 → C.9E 15:33 → C.3T 19:05
PROVIDERS: ADMIT Internal Medicine Pulmonary Disease; ATTEND Internal Medicine Pulmonary Disease
DX: N20.2 Calculus of kidney with calculus of ureter (principal); J45.909 Unspecified asthma, uncomplicated; F17.200 Nicotine dependence, unspecified, uncomplicated; E11.9 Type 2 diabetes mellitus without complications; Z85.3 Personal history of malignant neoplasm of breast
CPT/HCPCS: 36415; 52005; 74020; 74176; 80053; 81001; 83690; 83735; 84100; 84703; 85025; 85610; 85730; 96361; 96374; 96375; 96376; 99285; C1769; C2617; G0378; J0744; J1170; J1580; J1885; J2405; J3480; J7040; J7120

== ENCOUNTER 2018-02-23 20:22 | Emergency (ER) | payer OTHER ==
[2018-02-23 20:22] VITALS: BMI 30.9
--- NOTE | 2018-02-23 20:40 | C.PDOC ---
History Of Present Illness Patient presents to the ER with a complaint of diffuse, sharp/stabbing abdominal pain for the past 2 weeks that worsened today while at work, associated with some nausea. Patient reports taking motrin today with no relief to symptoms. Denies dysuria, hematuria, or vomiting. Time Seen by Provider: 02/23/18 20:40 Chief Complaint (Nursing): Abdominal Pain History Per: Patient History/Exam Limitations: no limitations Onset/Duration Of Symptoms: Days Current Symptoms Are (Timing): Still Present Severity: Moderate Pain Scale Rating Of: 5 Location Of Pain/Discomfort: Diffuse Quality Of Discomfort: Sharp, Stabbing Associated Symptoms: Nausea. denies: Fever, Chills, Vomiting, Urinary Symptoms Exacerbating Factors: None Alleviating Factors: None Recent travel outside of the [place]: No Abnormal Vaginal Bleeding: No Past Medical History Reviewed: Historical Data, Nursing Documentation, Vital Signs Vital Signs: Last Vital Signs Temp 98 F 02/23/18 21:18 Pulse 80 02/23/18 21:18 Resp 14 02/23/18 21:18 BP 118/70 02/23/18 21:18 Pulse Ox 98 02/23/18 21:18 - Medical History PMH: Arthritis, Asthma, Migraine Family History: States: No Known Family Hx - Social History Hx Tobacco Use: Yes (quit smoking and started again 2 months ago) Hx Alcohol Use: Yes Hx Substance Use: No - Immunization History Hx Tetanus Toxoid Vaccination: No Hx Influenza Vaccination: No Hx Pneumococcal Vaccination: No Review Of Systems Constitutional: Negative for: Fever, Chills Respiratory: Negative for: Cough Gastrointestinal: Positive for: Nausea, Abdominal Pain. Negative for: Vomiting Genitourinary: Negative for: Dysuria, Hematuria Physical Exam - Physical Exam Appears: Non-toxic Skin: Warm, Dry Head: Normacephalic Oral Mucosa: Moist Chest: Symmetrical, No Tenderness Cardiovascular: Rhythm Regular Respiratory: No Rales, No Rhonchi, No Wheezing Gastrointestinal/Abdominal: Soft, Tenderness (Diffuse), Guarding (Voluntary), No Rebound Neurological/Psych: Oriented x3 ED Course And Treatment - Laboratory Results Result Diagrams: 02/23/18 21:00 02/23/18 21:00 O2 Sat by Pulse Oximetry: 100 (Room air) Pulse Ox Interpretation: Normal Progress Note: Blood work and urinalysis ordered. Pepcid, morphine, zofran, and IV fluids administered. Reevaluation Time: 00:07 Reassessment Condition: Improved Disposition Counseled Patient/Family Regarding: Studies Performed, Diagnosis, Need For Followup, Rx Given - Disposition Referrals: Bassam Sanchez MD [Non-Staff] - Disposition: HOME/ ROUTINE Disposition Time: 20:40 Condition: FAIR Additional Instructions: Please return if symptoms recur Prescriptions: Polyethylene Glycol 3350 [Miralax] 17 gm PO DAILY #270 ml Instructions: Constipation, Adult (DC), High Fiber Diet Forms: [employer] (Faroese) - Clinical Impression Clinical Impression: Abdominal pain, Constipation - Scribe Statement The provider has reviewed the documentation as recorded by the Scribe Kaushik Strauss All medical record entries made by the Scribe were at my direction and personally dictated by me. I have reviewed the chart and agree that the record accurately reflects my personal performance of the history, physical exam, medical decision making, and the department course for this patient. I have also personally directed, reviewed, and agree with the discharge instructions and disposition.
[2018-02-23] MEDS ORDERED: Sodium Chloride 0.9% 1,000 ML IV ONE (20:46)
[2018-02-23 21:04] LABS: BASO # 0.1 K/uL (0.0-0.2); BASO % 1.6 % (0.0-2.0); EOS # 0.1 K/uL (0.0-0.7); EOS % 0.9 % (0.0-4.0); HEMOGLOBIN 10.2 g/dL (11.0-16.0); LYMPH # 2.9 K/uL (1.0-4.3); LYMPH % 33.9 % (20.0-40.0); MEAN CELL VOLUME 78.1 fL (81.0-99.0); MEAN CORPUSCULAR HEMOGLOBIN 24.7 pg (27.0-31.0); MEAN CORPUSCULAR HGB CONC 31.7 g/dL (33.0-37.0); MEAN PLATELET VOLUME 10.1 fL (7.2-11.7); MONO # 0.5 K/uL (0.0-0.8); MONO % 5.9 % (0.0-10.0); NEUT # 4.9 K/uL (1.8-7.0); NEUT % 57.7 % (50.0-75.0); RBC 4.14 Mil/uL (3.80-5.20); RED CELL DISTRIBUTION WIDTH 15.8 % (11.5-14.5); WHITE BLOOD COUNT 8.4 K/uL (4.8-10.8)
[2018-02-23] MEDS ORDERED: Morphine 4 MG/ML VIAL ONE (21:05)
[2018-02-23] MEDS ORDERED: Sodium Chloride 0.9% 250 ML IV ONE (21:05)
[2018-02-23 21:13] LABS: PROTHROMBIN TIME 11.6 SECONDS (9.7-12.2)
[2018-02-23 21:16] LABS: ALB/GLOB RATIO 1.2 (1.0-2.1); ALBUMIN 3.9 g/dL (3.5-5.0); CALCIUM 8.9 mg/dl (8.6-10.4); GFR AFRICAN-AMERICAN > 60; GFR NON-AFRICAN AMERICAN 56; LIPASE 129 U/L (23-300)
[2018-02-23 21:17] LABS: ALT/SGPT 27 U/L (9-52); AST/SGOT 26 U/L (14-36); BLOOD UREA NITROGEN 17 mg/dL (7-17)
[2018-02-23 21:19] VITALS: RESP 14
[2018-02-23 21:23] LABS: SQUAMOUS EPITHIAL < 1 /hpf (0-5); URINE BILIRUBIN NEGATIVE (NEGATIVE); URINE BLOOD NEGATIVE (NEGATIVE); URINE CLARITY Clear (Clear); URINE COLOR Straw (YELLOW); URINE GLUCOSE (UA) NORMAL (Normal); URINE LEUKOCYTE ESTERASE NEG Leu/uL (Negative); URINE PROTEIN NEGATIVE (NEGATIVE); URINE UROBILINOGEN NORMAL mg/dL (0.2-1.0)
[2018-02-23 21:26] LABS: HCG,QUALITATIVE URINE NEGATIVE (NEGATIVE)
[2018-02-23] MEDS ORDERED: Iodixanol 320 MG/ML 100 ML BOTTLE IV ONE (22:07)
[2018-02-24 00:18] VITALS: BP 110/70; PULSE 70; TEMP 97.5; O2SAT 98
--- NOTE | 2018-02-24 08:18 | CT ---
PROCEDURE: CT Abdomen and Pelvis without intravenous contrast HISTORY: mid epigastric pain COMPARISON: CT abdomen and pelvis dated 03/23/2016 TECHNIQUE: Multiple contiguous axial images were performed through the abdomen and pelvis with intravenous contrast. Subsequently, sagittal and coronal reformatted images were obtained. Radiation dose: Total exam DLP = 595 mGy-cm. This CT exam was performed using one or more of the following dose reduction techniques: Automated exposure control, adjustment of the mA and/or kV according to patient size, and/or use of iterative reconstruction technique. FINDINGS: LOWER THORAX: Unremarkable. LIVER: Unremarkable. No gross lesion or ductal dilatation. GALLBLADDER AND BILE DUCTS: Unremarkable. PANCREAS: Unremarkable. No gross lesion or ductal dilatation. SPLEEN: Small 6 millimeter hypodensity in the spleen, too small to adequately characterize. ADRENALS: Unremarkable. No mass. KIDNEYS AND URETERS: Small hypodensity in the midpole of the right kidney measuring 5 millimeters, too small to adequately characterize. Additional small hypodensity in the midpole of the left kidney measuring 4 millimeters, too small to adequately characterize. VASCULATURE: Unremarkable. No aortic aneurysm. BOWEL: Moderate fecal retention in the right and transverse colon consistent with constipation. APPENDIX: Unremarkable. Normal appendix. PERITONEUM: Unremarkable. No free fluid. No free air. LYMPH NODES: Unremarkable. No enlarged lymph nodes. BLADDER: Unremarkable. REPRODUCTIVE: Heterogeneous uterus, endometrium, and bilateral adnexa. BONES: No acute fracture. OTHER FINDINGS: None. IMPRESSION: Moderate fecal retention in the right and transverse colon consistent with constipation. These findings were preliminarily reported at 11:39 p.m. on 02/23/[address] Deshawn Wood from [facility].
== END 2018-02-24 00:17 | disposition home or self-care (01) ==
LOC: C.ER 20:22
DX: K59.00 Constipation, unspecified (principal); R10.9 Unspecified abdominal pain
CPT/HCPCS: 74177; 80053; 81001; 83690; 84703; 85025; 85610; 85730; 96374; 96375; 99283; J2270; J2405; J7040; Q9967

== ENCOUNTER 2018-05-01 20:28 | Emergency (ER) | payer OTHER ==
[2018-05-01 20:28] VITALS: BMI 30.9
[2018-05-01 21:30] VITALS: RESP 20; O2SAT 100
[2018-05-01] MEDS ORDERED: Sodium Chloride 0.9% 1,000 ML IV ONE (22:12)
[2018-05-01] MEDS ORDERED: Sodium Chloride 0.9% 1,000 ML ONE (22:20)
[2018-05-01 22:42] LABS: BASO % 0.6 % (0.0-2.0); EOS # 0.1 K/uL (0.0-0.7); EOS % 1.1 % (0.0-4.0); HEMOGLOBIN 10.4 g/dL (11.0-16.0); LYMPH # 2.7 K/uL (1.0-4.3); LYMPH % 33.9 % (20.0-40.0); MEAN CELL VOLUME 76.7 fL (81.0-99.0); MEAN CORPUSCULAR HEMOGLOBIN 23.6 pg (27.0-31.0); MEAN CORPUSCULAR HGB CONC 30.7 g/dL (33.0-37.0); MEAN PLATELET VOLUME 10.2 fL (7.2-11.7); MONO # 0.6 K/uL (0.0-0.8); MONO % 7.2 % (0.0-10.0); NEUT # 4.5 K/uL (1.8-7.0); NEUT % 57.2 % (50.0-75.0); RBC 4.4 Mil/uL (3.80-5.20); RED CELL DISTRIBUTION WIDTH 15.8 % (11.5-14.5); WHITE BLOOD COUNT 7.9 K/uL (4.8-10.8)
[2018-05-01 22:54] LABS: ALB/GLOB RATIO 1.3 (1.0-2.1); ALBUMIN 3.8 g/dL (3.5-5.0); ALT/SGPT 26 U/L (9-52); AST/SGOT 21 U/L (14-36); BLOOD UREA NITROGEN 16 mg/dL (7-17); CALCIUM 9.1 mg/dl (8.6-10.4); GFR AFRICAN-AMERICAN > 60; GFR NON-AFRICAN AMERICAN > 60; LIPASE 116 U/L (23-300)
--- NOTE | 2018-05-01 23:17 | C.PDOC ---
History Of Present Illness 38 year old female with PMHx of migraines presents to the ED c.o headache, abdominal pain, nausea, and vomiting. Patient reports this headache feels like her typical migraines headache associated with photophobia and mild epigastric pain, but is not the worse headache of her life. Patient denies fever, chills, diarrhea, neck stiffness. Chief Complaint (Nursing): Abdominal Pain History Per: Patient History/Exam Limitations: no limitations Onset/Duration Of Symptoms: Hrs Current Symptoms Are (Timing): Still Present Location Of Pain/Discomfort: Epigastric Radiation Of Pain To:: None Quality Of Discomfort: "Pain" Associated Symptoms: Nausea, Vomiting, Other (headache) Alleviating Factors: None Recent travel outside of the [place]: No Additional History Per: Patient Abnormal Vaginal Bleeding: No Past Medical History Reviewed: Historical Data, Nursing Documentation, Vital Signs Vital Signs: Last Vital Signs Temp 98.1 F 05/02/18 00:15 Pulse 78 05/02/18 00:15 Resp 20 05/02/18 00:15 BP 118/77 05/02/18 00:15 Pulse Ox 100 05/02/18 00:15 - Medical History PMH: Arthritis, Asthma, Migraine Surgical History: No Surg Hx Family History: States: Unknown Family Hx - Social History Hx Tobacco Use: Yes (quit smoking and started again 2 months ago) Hx Alcohol Use: Yes Hx Substance Use: No - Immunization History Hx Tetanus Toxoid Vaccination: No Hx Influenza Vaccination: No Hx Pneumococcal Vaccination: No Review Of Systems Constitutional: Negative for: Fever, Chills Eyes: Positive for: Vision Change Cardiovascular: Negative for: Chest Pain Respiratory: Negative for: Shortness of Breath Gastrointestinal: Positive for: Nausea, Vomiting, Abdominal Pain Skin: Negative for: Rash Neurological: Positive for: Headache. Negative for: Dizziness Physical Exam - Physical Exam Appears: Non-toxic, No Acute Distress Skin: Normal Color, Warm, Dry Head: Atraumatic, Normacephalic Eye(s): bilateral: Normal Inspection, PERRL, EOMI Oral Mucosa: Moist Neck: Normal ROM, No Midline Cervical Tenderness, Supple Chest: Symmetrical Cardiovascular: Rhythm Regular Respiratory: Normal Breath Sounds, No Rales, No Rhonchi, No Wheezing Gastrointestinal/Abdominal: Soft, No Tenderness, No Guarding, No Rebound Extremity: Normal ROM, No Tenderness, No Swelling Neurological/Psych: Oriented x3, Normal Speech Gait: Steady ED Course And Treatment - Laboratory Results Result Diagrams: 05/01/18 22:31 05/01/18 22:31 O2 Sat by Pulse Oximetry: 100 (ON RA) Pulse Ox Interpretation: Normal Medical Decision Making Medical Decision Making: Impression: migraine headache, abdominal pain Plan: * Toradol 30 mg IVP * Reglan 20 mg IVP * IV fluids Disposition - Disposition Referrals: [facility] Arthur Lopez, [Non-Staff] - Disposition: HOME/ ROUTINE Disposition Time: 23:10 Condition: IMPROVED Additional Instructions: BEATRIZ HUNTER, thank you for letting us take care of you today. Your provider was Jose Alejandro Kelly DO and you were treated for MIGRAINES. The emergency medical care you received today was directed at your acute symptoms. If you were prescribed any medication, please fill it and take as directed. It may take several days for your symptoms to resolve. Return to the Emergency Department if your symptoms worsen, do not improve, or if you have any other problems. Please contact your doctor or call one of the physicians/clinics you have been referred to that are listed on the Patient Visit Information form that is included in your discharge packet. Bring any paperwork you were given at discharge with you along with any medications you are taking to your follow up visit. Our treatment cannot replace ongoing medical care by a primary care provider outside of the emergency department. Thank you for allowing the [facility] team to be part of your care today. Follow up with your primary care doctor in 2-3 days for re-evaluation and further management. Prescriptions: Acetaminophen/Butalbital/Caf [Fioricet] 1 tab PO Q8 PRN #15 tab PRN Reason: Migraine Headache Instructions: Migraine Headache (DC) Forms: [employer] (Swedish) - Clinical Impression Clinical Impression: Migraine headache - Scribe Statement The provider has reviewed the documentation as recorded by the Scribe Mohsen Brewer All medical record entries made by the Scribe were at my direction and personally dictated by me. I have reviewed the chart and agree that the record accurately reflects my personal performance of the history, physical exam, medical decision making, and the department course for this patient. I have also personally directed, reviewed, and agree with the discharge instructions and disposition.
[2018-05-02 00:30] VITALS: BP 118/77; PULSE 78; TEMP 98.1
== END 2018-05-02 00:18 | disposition home or self-care (01) ==
LOC: C.ER 20:28
DX: G43.909 Migraine, unspecified, not intractable, without status migrainosus (principal)
CPT/HCPCS: 80053; 83690; 85025; 96361; 96374; 96375; 99285; J1885; J2765; J7030

== ENCOUNTER 2018-05-27 11:44 | Inpatient (IN) | payer MEDICAID, OTHER ==
[2018-05-27 11:45] VITALS: BMI 30.9
[2018-05-27 12:54] LABS: BASO % 0.4 % (0.0-2.0); EOS # 0.1 K/uL (0.0-0.7); EOS % 1.1 % (0.0-4.0); HEMOGLOBIN 10.7 g/dL (11.0-16.0); LYMPH % 31.1 % (20.0-40.0); MEAN CELL VOLUME 76.1 fL (81.0-99.0); MEAN CORPUSCULAR HGB CONC 31.5 g/dL (33.0-37.0); MEAN PLATELET VOLUME 10.2 fL (7.2-11.7); MONO # 0.5 K/uL (0.0-0.8); MONO % 7.2 % (0.0-10.0); NEUT # 3.8 K/uL (1.8-7.0); NEUT % 60.2 % (50.0-75.0); RBC 4.48 Mil/uL (3.80-5.20); WHITE BLOOD COUNT 6.3 K/uL (4.8-10.8)
--- NOTE | 2018-05-27 13:02 | C.PDOC ---
History Of Present Illness 38 year old female with no known medical history presents to the emergency department with complaints of feeling depressed. Patient reports that she is having racing thoughts, a decreased appetite, feeling anxious, and having palpitations. Patient has been expressing suicidal thoughts, with thoughts of walking into oncoming traffic. She reports that she is a social smoker and drinker. Time Seen by Provider: 05/27/18 11:59 Chief Complaint (Nursing): Psychiatric Evaluation Past Medical History Vital Signs: Last Vital Signs Temp 99 F 05/27/18 11:55 Pulse 78 05/27/18 11:55 Resp 20 05/27/18 11:55 BP 144/91 H 05/27/18 11:55 Pulse Ox 100 05/27/18 11:55 - Medical History PMH: Arthritis, Asthma, Depression, Migraine Family History: States: Unknown Family Hx - Social History Hx Tobacco Use: Yes (quit smoking and started again 2 months ago) Hx Alcohol Use: Yes Hx Substance Use: No - Immunization History Hx Tetanus Toxoid Vaccination: No Hx Influenza Vaccination: No Hx Pneumococcal Vaccination: No ED Course And Treatment O2 Sat by Pulse Oximetry: 100 Disposition - Disposition Forms: [employer] (Kazakh)
[2018-05-27 13:06] LABS: HCG,QUALITATIVE URINE NEGATIVE (NEGATIVE)
[2018-05-27 13:07] LABS: SQUAMOUS EPITHIAL 3 /hpf (0-5); URINE BILIRUBIN NEGATIVE (NEGATIVE); URINE BLOOD NEGATIVE (NEGATIVE); URINE CLARITY Clear (Clear); URINE COLOR Yellow (YELLOW); URINE GLUCOSE (UA) NORMAL (Normal); URINE LEUKOCYTE ESTERASE NEG Leu/uL (Negative); URINE PROTEIN NEGATIVE (NEGATIVE); URINE UROBILINOGEN NORMAL mg/dL (0.2-1.0)
--- NOTE | 2018-05-27 13:09 | C.PDOC ---
History Of Present Illness 38 year old female with no known psych history presents to the emergency department with complaints of feeling depressed. Patient reports that she is having racing thoughts, a decreased appetite, feeling anxious, and having palpitations. Patient has been expressing suicidal thoughts, with thoughts of walking into oncoming traffic. She reports that she is a social smoker and drinker. Time Seen by Provider: 05/27/18 11:59 Chief Complaint (Nursing): Psychiatric Evaluation History Per: Patient History/Exam Limitations: no limitations Onset/Duration Of Symptoms: Persistent Current Symptoms Are (Timing): Still Present Suicide/Self Injury Attempted (Context): None Modifying Factor(s): None Severity: None Associated Symptoms: Depression, Suicidal Thoughts Past Medical History Reviewed: Historical Data, Nursing Documentation, Vital Signs Vital Signs: Last Vital Signs Temp 98.4 F 05/27/18 14:27 Pulse 65 05/27/18 14:27 Resp 20 05/27/18 14:27 BP 121/77 05/27/18 14:27 Pulse Ox 99 05/27/18 14:27 - Medical History PMH: Arthritis, Asthma, Depression, Migraine Surgical History: No Surg Hx Family History: States: No Known Family Hx - Social History Hx Tobacco Use: Yes (quit smoking and started again 2 months ago) Hx Alcohol Use: Yes Hx Substance Use: No - Immunization History Hx Tetanus Toxoid Vaccination: No Hx Influenza Vaccination: No Hx Pneumococcal Vaccination: No Review Of Systems Cardiovascular: Positive for: Palpitations Gastrointestinal: Positive for: Other (decreased appetite) Psych: Positive for: Anxiety, Depression, Suicidal ideation Physical Exam - Physical Exam Appears: Non-toxic, Other (flat affect, depressed mood) Skin: Warm, Dry, No Rash Head: Atraumatic, Normacephalic Eye(s): bilateral: Normal Inspection Oral Mucosa: Moist Neck: Normal ROM Chest: Symmetrical Cardiovascular: Rhythm Regular, No Murmur Respiratory: Normal Breath Sounds, No Rales, No Rhonchi, No Wheezing Gastrointestinal/Abdominal: Normal Exam, Soft, No Tenderness, No Guarding, No Rebound Extremity: Bilateral: Atraumatic, Normal Color And Temperature, Normal ROM Neurological/Psych: Oriented x3, Normal Speech ED Course And Treatment - Laboratory Results Result Diagrams: 05/27/18 12:51 05/27/18 12:51 Lab Interpretation: No Acute Changes ECG: Interpreted By Me, Viewed By Me ECG Rhythm: Sinus Rhythm ECG Interpretation: No Acute Changes Rate From EC O2 Sat by Pulse Oximetry: 100 (RA) Pulse Ox Interpretation: Normal Medical Decision Making Medical Decision Making: Plan: EKG Alcohol Serum CMP Drug Screen CBC HCG Urinalysis Labs ordered and reviewed. In my clinical judgment patient is medically cleared and stable for psychiatric admission. Dr Koenig accepted patient for inpatient admission of major depressive disorder Disposition - Disposition Disposition: HOSPITALIZED Disposition Time: 14:00 Condition: STABLE - POA Present On Arrival: None - Clinical Impression Clinical Impression: Major depressive disorder - PA / [employer] / Resident Statement MD/DO has reviewed & agrees with the documentation as recorded. - Scribe Statement The provider has reviewed the documentation as recorded by the Scribe (Lee Reynolds) All medical record entries made by the Scribe were at my direction and personally dictated by me. I have reviewed the chart and agree that the record accurately reflects my personal performance of the history, physical exam, medical decision making, and the department course for this patient. I have also personally directed, reviewed, and agree with the discharge instructions and disposition. Decision To Admit - Pt Status Changed To: Hospital Disposition Of: Inpatient - Admit Certification Admit to Inpatient:: After my assessment, the patient will require hospitalization for at least two midnights. This is because of the severity of symptoms shown, intensity of services needed, and/or the medical risk in this patient being treated as an outpatient. - InPatient: Physician Admission Certification: I certify that this patient requires 2 or more midnights of care for the following reason:: Dr Koenig accepted patient for inpatient admission of major depressive disorder - . Bed Request Type: Psychiatry Admitting Physician: Ady Koenig Patient Diagnosis: Major depressive disorder
[2018-05-27 13:27] LABS: BARBITURATES, UR NEGATIVE (NEGATIVE); BENZODIAZEPINES, UR NEGATIVE (NEGATIVE); OPIATES, UR NEGATIVE (NEGATIVE); PHENCYCLIDINE, UR NEGATIVE (NEGATIVE)
[2018-05-27 13:36] LABS: ALB/GLOB RATIO 1.4 (1.0-2.1); ALBUMIN 4.3 g/dL (3.5-5.0); ALT/SGPT 18 U/L (9-52); AST/SGOT 18 U/L (14-36); BLOOD UREA NITROGEN 10 mg/dL (7-17); CALCIUM 9.3 mg/dl (8.6-10.4); GFR AFRICAN-AMERICAN > 60; GFR NON-AFRICAN AMERICAN > 60
--- NOTE | 2018-05-27 16:01 | PCM.BM ---
<Mariella Urias - Last Filed: 05/27/18 16:01> Treatment Plan Problems - Problems identified on initial assessmt ineffective coping related to depression Date Initiated: 05/27/18 Time Initiated: 16:00 Assessment reference: NA Status: Active Treatment assets and liabiliti Patient Assests: educated, ADL independent, good support system Patient Liabilities: financial problems - Milieu Protocol Maintain good personal hygiene: every shift Encourage regular showers, every shift Remind patient to perform daily oral care, every shift Assist patient to perform ADL's Conduct patient checks and document Observation sheet: Q15 minutes Maintain personal safety: every shift Educate patient to report safety concerns to staff, every shift Monitor environment for contraband/sharps Medication safety: Monitor for expected outcome, potential side effects: every shift, Assess barriers to learning: every shift, Assess readiness for medication education: every shift <Jeannine Orozco - Last Filed: 05/29/18 17:06> Family Contact Family involvement: Patient does not wish Family/SO involvement Family contact: Patient declines to allow family contact at present - Goals for Treatment Patient goals for treatment: "I want to go to [facility]". Discharge/Continuing Care - Education Needs Education Needs: Patient Medication, Patient Diagnosis/Disease Process, Patient Coping Skills, Patient Anger Management skills, Patient Community resources, Patient Activities of Daily Living - Discharge Discharge Criteria: Free of Suicidal thoughts, Free of agitation, Normal sleep pattern, Ability to care for self, Reduction of target symptoms Discharge to:: Home, With Family - Treatment Team Participation Discussed with Family/SO: No Was Patient/Family/SO present at Treatment Team Meeting: Yes
[2018-05-27 19:19] VITALS: O2SAT 99
--- NOTE | 2018-05-28 22:55 | PCM.PSYCH ---
Initial Psychiatric Evaluation - Initial Psychiatric Evaluation Type of Admission: Voluntary Legal Status: Capacity Current Medications: Active Medications Generic Name Dose Route Start Last Admin Trade Name Freq PRN Reason Stop Dose Admin Hydroxyzine HCl 25 mg 05/27/18 15:54 Atarax PO Q6 PRN Anxiety Ibuprofen 400 mg 05/27/18 15:55 Motrin Tab PO Q6 PRN Headache Sertraline HCl 50 mg 05/28/18 15:30 05/28/18 16:05 Zoloft PO Not Given DAILY VENUS Trazodone HCl 50 mg 05/28/18 22:00 05/28/18 22:05 Desyrel PO 50 mg HS PRN Administration Insomnia Past Psychiatric History - Past Psychiatric History Pertinent Medical Hx (Current Medical&Sleep Prob, Allergies): Allergies Allergy/AdvReac Type Severity Reaction Status Date / Time No Known Allergies Allergy Verified 02/23/18 20:32 Albuterol HFA [Ventolin HFA 90 mcg/actuation (8 g)] 2 puff IH PRN PRN 02/23/18
--- NOTE | 2018-05-29 11:01 | PCM.PYCHPN ---
Psychiatric Progress Note - Psychiatric Progress Note Patient seen today, length of contact: 15 min Patient Chief Complaint: I am feeling imitable.' Problems Identified/Issues Discussed: Patient seen and evaluated, chart reviewed and discussed with the nurse. Patient reports irritability and agitation. She remained angry and labile. She reports racing thoughts and flight of ideas. However she denies any auditory or visual hallucinations. She denies any suicidal ideation or homicidal ideation. She is taking medications and denies any side effects Symptoms are improving but needs more time for stabilization. Supportive therapy and psychoeducation were given. Medication Change: Yes (start depakote) Medical Record Reviewed: Yes Mental Status Examination - Cognitive Function Orientation: Person, Place, Situation, Time Memory: Intact Attention: WNL Concentration: Poor Association: WNL Fund of Knowledge: Poor - Mood Mood: Anxious - Affect Affect: Constricted - Speech Speech: Soft - Formal Thought Process Formal Thought Process: Flight of ideas, Circumstantial - Suicidal Ideation Suicidal Ideation: No - Homicidal Ideation Homicidal Ideation: No Goal/Treatment Plan - Goal/Treatment Plan Need for Continued Stay: Severe depression anxiety, Severe functional impairment Progress Toward Problem(s) and Goals/Treatment Plan: Bipolar disorder mixed severe without psychotic features CBT Psychoeducation Supportive therapy, group therapy, individual therapy Trazodone 50 mg by mouth daily at bedtime Hydroxyzine 25 mg by mouth every 6 hours when necessary Depakote 250 mg by mouth twice a day Ativan 1 mg PO Q6 hr
[2018-05-29] MEDS: Divalproex 250 mg DR Tab PO SCH ×2 (12:27→18:13)
[2018-05-30] MEDS: Divalproex 250 mg DR Tab PO SCH ×2 (09:47→17:57)
[2018-05-31 06:40] VITALS: RESP 18
[2018-05-31] MEDS: Divalproex 250 mg DR Tab PO SCH (10:42)
[2018-05-31] MEDS ORDERED: Divalproex 250 mg DR Tab PO STA (11:19)
--- NOTE | 2018-05-31 14:47 | PCM.PYCHPN ---
Psychiatric Progress Note - Psychiatric Progress Note Patient seen today, length of contact: 15 min Patient Chief Complaint: I am feeling little better.' Problems Identified/Issues Discussed: Patient seen and evaluated, chart reviewed and discussed with the nurse. Patient reports some improvement in her irritability and agitation. She also reports some improvement in her racing thoughts and flight of ideas. However she denies any auditory or visual hallucinations. She is taking medications and denies any side effects Symptoms are improving but needs more time for stabilization. Supportive therapy and psychoeducation were given. Medication Change: Yes (Increase depakote) Medical Record Reviewed: Yes Mental Status Examination - Cognitive Function Orientation: Person, Place, Situation, Time Memory: Intact Attention: WNL Concentration: Poor Association: WNL Fund of Knowledge: Poor - Mood Mood: Anxious - Affect Affect: Constricted - Speech Speech: Soft - Formal Thought Process Formal Thought Process: Flight of ideas, Circumstantial - Suicidal Ideation Suicidal Ideation: No - Homicidal Ideation Homicidal Ideation: No Goal/Treatment Plan - Goal/Treatment Plan Need for Continued Stay: Severe depression anxiety, Severe functional impairment Progress Toward Problem(s) and Goals/Treatment Plan: Bipolar disorder mixed severe without psychotic features CBT Psychoeducation Supportive therapy, group therapy, individual therapy Trazodone 50 mg by mouth daily at bedtime Hydroxyzine 25 mg by mouth every 6 hours when necessary Depakote 500 mg by mouth twice a day Ativan 1 mg PO Q6 hr
[2018-05-31] MEDS: Divalproex 500 mg DR Tab PO SCH (17:23)
[2018-06-01 06:48] VITALS: BP 113/67; PULSE 56; TEMP 97.1
[2018-06-01] MEDS: Divalproex 500 mg DR Tab PO SCH (09:23)
--- NOTE | 2018-06-01 09:47 | PCM.PYCHDC ---
Mental Status Examination - Mental Status Examination Orientation: Person, Place, Situation, Time Memory: Intact Mood: Neutral Affect: Constricted Speech: Soft Attention: WNL Concentration: WNL Association: WNL Fund of Knowledge: WNL Formal Thought Process: No Impairment Description of patient's judgement and insight: good, fair Psychotic Thoughts and Behaviors: denies any AVH Suicidal Ideation: No Current Homicidal Ideation?: No Discharge Summary - Discharge Note Consultations:: List each consultation separately and include: 1. Reason for request. 2. Findings. 3. Follow-up Summary of Hospital Course include:: 1. Description of specific treatment plan utilized for patients during their course of treatmen. 2. Summarize the time- course for resolution of acute symptoms and/or regressed behaviors. 3. Describe issues identified and worked on during hospitalization. 4. Describe medication utilized. 5. Describe medical problems identified and treated. 6. Reassessment of suicide risk - Final Diagnosis (DSM 5) Condition upon Discharge: STABLE Disposition: HOME/ ROUTINE Follow-up Treatment Plan: Bipolar disorder mixed severe without psychotic features CBT Psychoeducation Supportive therapy, group therapy, individual therapy Trazodone 50 mg by mouth daily at bedtime Hydroxyzine 25 mg by mouth every 6 hours when necessary Depakote 500 mg by mouth twice a day Ativan 1 mg PO Q6 hr Prescriptions/Medication Reconciliation: Divalproex [Depakote DR] 500 mg PO BID #60 tcp traZODone [Desyrel] 50 mg PO HS #30 tab
== END 2018-06-01 11:18 | disposition home or self-care (01) | DRG 430 ==
LOC: C.ER 11:44 → C.5E 14:05
PROC: GZHZZZZ Group Psychotherapy (ICD-10-PCS; principal; 2018-05-27)
PROC: GZ56ZZZ Individual Psychotherapy, Supportive (ICD-10-PCS; 2018-05-27)
DX: F31.63 Bipolar disorder, current episode mixed, severe, without psychotic features (principal); J45.909 Unspecified asthma, uncomplicated; R45.851 Suicidal ideations; F17.200 Nicotine dependence, unspecified, uncomplicated

== ENCOUNTER 2018-07-12 19:57 | Emergency (ER) | payer SELFPAY ==
[2018-07-12 19:58] VITALS: BMI 30.9
[2018-07-12 20:13] VITALS: BP 129/83; PULSE 78; RESP 14; TEMP 98.2; O2SAT 99
[2018-07-12] MEDS ORDERED: MethylPREDNISolone 40 mg Vial ONE (20:41)
--- NOTE | 2018-07-12 20:44 | C.PDOC ---
History Of Present Illness 38 year old female presents to the ED for evaluation of "allergy" since Tuesday. Patient describes an itchy rash to the bilateral arms and neck, it appears in some spots, resolves and returns in other spots. She reports having known allergies to pollen, dust, and dogs. Denies any exposure to new foods, medication, detergents, lotions, or other possible allergens. Patient states she is taking Claritin and Benadryl at home with transient improvement. DEnies chest pain, lip/tongue swelling, sob, or difficulty swallowing. Time Seen by Provider: 07/12/18 20:14 Chief Complaint (Nursing): Abnormal Skin Integrity History Per: Patient History/Exam Limitations: no limitations Onset/Duration Of Symptoms: Days Current Symptoms Are (Timing): Still Present Location Of Injury: Right: Arm, Elbow, Left: Arm, Elbow, Anterior: Neck Past Medical History Reviewed: Historical Data, Nursing Documentation, Vital Signs Vital Signs: Last Vital Signs Temp 98.2 F 07/12/18 20:10 Pulse 78 07/12/18 20:10 Resp 14 07/12/18 20:10 BP 129/83 07/12/18 20:10 Pulse Ox 99 07/12/18 20:55 - Medical History PMH: Anxiety, Arthritis, Asthma, Depression, Migraine - [facility] Procedures GROUP PSYCHOTHERAPY (05/27/18) INDIVIDUAL PSYCHOTHERAPY, SUPPORTIVE (05/27/18) Family History: States: No Known Family Hx - Social History Hx Tobacco Use: Yes (quit smoking and started again 2 months ago) Hx Alcohol Use: Yes Hx Substance Use: No - Immunization History Hx Tetanus Toxoid Vaccination: No Hx Influenza Vaccination: No Hx Pneumococcal Vaccination: No Review Of Systems Constitutional: Negative for: Fever, Chills ENT: Negative for: Mouth Swelling, Throat Swelling Respiratory: Negative for: Shortness of Breath, Wheezing Skin: Positive for: Rash Neurological: Negative for: Weakness, Numbness Physical Exam - Physical Exam Appears: Non-toxic, No Acute Distress Skin: Warm, Dry, Rash (diffuse urticaria) Head: Atraumatic, Normacephalic Eye(s): bilateral: Normal Inspection, EOMI Nose: Normal Oral Mucosa: Moist Tongue: No Swelling Lips: No Swelling Throat: Normal (no swelling, patent airway), No Erythema, No Exudate, No Drooling Neck: Normal ROM, Supple Chest: Symmetrical Cardiovascular: Rhythm Regular Respiratory: No Accessory Muscle Use, Other (No respiratory distress) Extremity: Bilateral: Atraumatic, Normal ROM Pulses: Left Radial: Normal, Right Radial: Normal Neurological/Psych: Oriented x3, Normal Speech, Other (No focal deficits) Gait: Steady ED Course And Treatment O2 Sat by Pulse Oximetry: 99 (RA) Pulse Ox Interpretation: Normal Progress Note: Administered PO Benadryl, Pepcid, and IM solu-medrol. On re- evaluation, patient is resting comfortably, tolerating PO, has no shortness of breath, has no intra-oral swelling, no stridor. Pt is talking on the phone, no evidence of discomfort. Patient notes that pruritus has improved. Patient was advised to avoid potential allergens, and to follow up with physician in 1-2 days. Disposition - Disposition Disposition: HOME/ ROUTINE Disposition Time: 20:53 Condition: STABLE Additional Instructions: Follow up with your primary medical doctor or clinic in 2-5 days for further evaluation. Take medications as prescribed. Return to the emergency department at any time if symptoms persist or worsen. 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 - Scribe Statement The provider has reviewed the documentation as recorded by the Scribe (Magalys Schultz) All medical record entries made by the Scribe were at my direction and personally dictated by me. I have reviewed the chart and agree that the record accurately reflects my personal performance of the history, physical exam, medical decision making, and the department course for this patient. I have also personally directed, reviewed, and agree with the discharge instructions and disposition.
== END 2018-07-12 21:05 | disposition home or self-care (01) ==
LOC: C.ER 19:57
DX: L50.9 Urticaria, unspecified (principal)
CPT/HCPCS: 96372; 99283; J2930

== ENCOUNTER 2018-08-08 12:11 | Emergency (ER) | payer MEDICAID, OTHER ==
[2018-08-08 12:20] VITALS: BMI 29.7
[2018-08-08 12:39] VITALS: BP 116/78; PULSE 93; RESP 18; TEMP 98.2; O2SAT 99
--- NOTE | 2018-08-08 12:41 | C.PDOC ---
History Of Present Illness 38yo female, comes to ER for evaluation of recurrent trash. Patient was seen in this ER on 07/12 and 07/31 for similar and was diagnosed with hives. Patient was prescribed Benadryl and steroids during both visits, however states due to insurance issues, she was not able to fill out the prescription. She states the rash is intermittently present and currently is on her arms and axilla region; she reports mild relief with topical Benadryl and calamine lotion. She also reports she had an episode of asthma exacerbation this morning, which has now resolved. She denies any fever, chills, shortness of breath or chest pain. No other complaints. Time Seen by Provider: 08/08/18 12:26 Chief Complaint (Nursing): Abnormal Skin Integrity History Per: Patient History/Exam Limitations: no limitations Onset/Duration Of Symptoms: Days, Intermittent Episodes Current Symptoms Are (Timing): Still Present Location Of Injury: Right: Arm, Left: Arm Quality Of Symptoms: Itching Additional History Per: Patient Past Medical History Reviewed: Historical Data, Nursing Documentation, Vital Signs Vital Signs: Last Vital Signs Temp 98.2 F 08/08/18 12:20 Pulse 93 H 08/08/18 12:20 Resp 18 08/08/18 12:20 BP 116/78 08/08/18 12:20 Pulse Ox 99 08/08/18 12:49 - Medical History PMH: Anxiety, Arthritis, Asthma, Depression, Migraine Surgical History: No Surg Hx - [facility] Procedures GROUP PSYCHOTHERAPY (05/27/18) INDIVIDUAL PSYCHOTHERAPY, SUPPORTIVE (05/27/18) Family History: States: No Known Family Hx - Social History Hx Tobacco Use: Yes (quit smoking and started again 2 months ago) Hx Alcohol Use: No Hx Substance Use: No - Immunization History Hx Tetanus Toxoid Vaccination: No Hx Influenza Vaccination: No Hx Pneumococcal Vaccination: No Review Of Systems Constitutional: Negative for: Fever, Chills Cardiovascular: Negative for: Chest Pain Respiratory: Negative for: Shortness of Breath Skin: Positive for: Rash Physical Exam - Physical Exam Appears: Non-toxic, No Acute Distress Skin: Warm, Dry, Rash (urticaria noted to bilateral arms) Neck: Normal ROM, Supple Cardiovascular: Rhythm Regular Respiratory: Normal Breath Sounds, No Rales, No Rhonchi, No Wheezing Extremity: Normal ROM Neurological/Psych: Oriented x3 ED Course And Treatment O2 Sat by Pulse Oximetry: 99 (RA) Pulse Ox Interpretation: Normal Progress Note: Patient given prednisone 60mg PO in ER. Stable for d/c home; given prescription for Albuterol inhaler as well as prednisone. Instructed to follow up at clinic in 2-3 days. Disposition Counseled Patient/Family Regarding: Diagnosis, Need For Followup, Rx Given - Disposition Referrals: your,pmd [Other] Disposition: HOME/ ROUTINE Disposition Time: 12:48 Condition: IMPROVED Prescriptions: Albuterol HFA [Ventolin HFA 90 mcg/actuation (8 g)] 1 puff IH Q4 #1 inhaler predniSONE [Prednisone] 60 mg PO DAILY #12 tab Instructions: Hives (DC) Forms: [employer] (French) - Clinical Impression Clinical Impression: Hives, URI (upper respiratory infection) - Scribe Statement The provider has reviewed the documentation as recorded by the Olive Lemus Provider Attestation: All medical record entries made by the Scribe were at my direction and personally dictated by me. I have reviewed the chart and agree that the record accurately reflects my personal performance of the history, physical exam, medical decision making, and the department course for this patient. I have also personally directed, reviewed, and agree with the discharge instructions and disposition.
== END 2018-08-08 12:57 | disposition home or self-care (01) ==
LOC: C.ER 12:11
DX: L50.9 Urticaria, unspecified (principal); J06.9 Acute upper respiratory infection, unspecified; Z87.891 Personal history of nicotine dependence

== ENCOUNTER 2019-03-27 10:10 | Emergency (ER) | payer MEDICAID, OTHER ==
[2019-03-27 10:10] VITALS: BMI 29.7
[2019-03-27] MEDS ORDERED: Albuterol-Ipratrop 3 mg / 0.5 (3 ml) UD ONE (10:19)
[2019-03-27 10:23] VITALS: O2SAT 100
[2019-03-27] MEDS ORDERED: Albuterol-Ipratrop 3 mg / 0.5 (3 ml) UD INH STA (10:23)
[2019-03-27 11:28] VITALS: RESP 18
--- NOTE | 2019-03-27 11:38 | C.PDOC ---
History Of Present Illness 39-year-old female presents to the ED for evaluation of marked nasal congestion and rhinorrhea which began yesterday. Patient reports it is hard for her to breathe through her nose. She also reports having frequent cough and a scratchy throat. Patient has been using Flonase over the past week with minimum relief. She denies fever, chills, previous intubations. Time Seen by Provider: 03/27/19 10:31 Chief Complaint (Nursing): Shortness Of Breath History Per: Patient History/Exam Limitations: no limitations Onset/Duration Of Symptoms: Hrs Current Symptoms Are (Timing): Still Present Associated Symptoms: Sore Throat, Cough, Nasal Congestion. denies: Fever, Chills Additional History Per: Patient Past Medical History Reviewed: Historical Data, Nursing Documentation, Vital Signs Vital Signs: Last Vital Signs Temp 98 F 03/27/19 10:20 Pulse 83 03/27/19 10:20 Resp 28 H 03/27/19 10:20 BP 138/89 03/27/19 10:20 Pulse Ox 100 03/27/19 10:20 Primary Care Provider: FAMILY PROVIDER,NO - Medical History PMH: Anxiety, Arthritis, Asthma, Depression, Migraine Surgical History: No Surg Hx - [facility] Procedures GROUP PSYCHOTHERAPY (05/27/18) INDIVIDUAL PSYCHOTHERAPY, SUPPORTIVE (05/27/18) Family History: States: Unknown Family Hx - Social History Hx Tobacco Use: Yes (quit smoking and started again 2 months ago) Hx Alcohol Use: No Hx Substance Use: No - Immunization History Hx Tetanus Toxoid Vaccination: No Hx Influenza Vaccination: No Hx Pneumococcal Vaccination: No Review Of Systems Constitutional: Negative for: Fever, Chills ENT: Positive for: Nose Congestion, Throat Pain Respiratory: Positive for: Cough Physical Exam - Physical Exam Appears: Non-toxic, No Acute Distress, Other (uncomfortable) Skin: Normal Color, Warm, Dry Head: Atraumatic, Normacephalic Eye(s): bilateral: Normal Inspection Ear(s): Bilateral: Normal Nose: Discharge Oral Mucosa: Moist Throat: No Erythema, No Exudate Neck: Supple Chest: Symmetrical, No Deformity, Tenderness (reproducible, to anterior chest wall ) Cardiovascular: Rhythm Regular, No Murmur Respiratory: Normal Breath Sounds, No Rales, No Rhonchi, No Wheezing Extremity: Normal ROM, Capillary Refill (less than 2 seconds ) Neurological/Psych: Oriented x3, Normal Speech, Normal Cognition ED Course And Treatment O2 Sat by Pulse Oximetry: 100 (on RA) Pulse Ox Interpretation: Normal Medical Decision Making Medical Decision Making: Progress: CXR ordered and reviewed. Claritin PO, albuterol INH, and Tylenol PO given. 1232 pt still with considerable amount of nasal discharge. lungs cta, no wheezing noted, pt sts she cant breathe through nose. chest wall tenderness decreased after tylenol. pt with normal ekg and neg cxr. d/c home with claritin Disposition Counseled Patient/Family Regarding: Studies Performed, Diagnosis, Need For Followup, Rx Given - Disposition Referrals: [facility] [Outside] [facility] [Outside] Urbano Cleary MD [Staff Provider] - Disposition: HOME/ ROUTINE Disposition Time: 12:34 Condition: GOOD Additional Instructions: Use Claritin to help with runny nose, one pill per day. Continue using FLonase one spray in each nostril per day. Use inhaler 2 puffs every 6 hours. Recommend nasal saline, neti pot, Can alos use sudafed to help with congestion. Folllow up in medical clinic and with Dr Cleary. 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 - Scribe Statement The provider has reviewed the documentation as recorded by the Scribe (Amara Bacon) All medical record entries made by the Scribe were at my direction and personally dictated by me. I have reviewed the chart and agree that the record accurately reflects my personal performance of the history, physical exam, medical decision making, and the department course for this patient. I have also personally directed, reviewed, and agree with the discharge instructions and disposition.
--- NOTE | 2019-03-27 12:27 | RAD ---
HISTORY: cough sob COMPARISON: Chest x-ray performed 04/23/17 TECHNIQUE: Chest PA and lateral, 2 views FINDINGS: Examination limited by habitus. LUNGS: No focal consolidation. Please note that chest x-ray has limited sensitivity for the detection of pulmonary masses. PLEURA: No significant pleural effusion identified. No definite pneumothorax . CARDIOVASCULAR: Heart size appears within normal limits. No atherosclerotic calcification present. OSSEOUS STRUCTURES: Mild degenerative changes. VISUALIZED UPPER ABDOMEN: Unremarkable. OTHER FINDINGS: None. IMPRESSION: No focal consolidation.
[2019-03-27 12:49] VITALS: BP 122/82; PULSE 65; TEMP 98.5
== END 2019-03-27 13:05 | disposition home or self-care (01) ==
LOC: C.ER 10:10
DX: J30.2 Other seasonal allergic rhinitis (principal)